=== PATIENT | female | born 1935 | race Caucasian/White ===

== ENCOUNTER 2016-09-09 13:41 | Emergency (ER) | payer MEDICARE, BC ==
[2016-09-09 14:21] LABS: BASOPHILS 0.2 % (0.0-2.0); EOSINOPHILS 3.6 % (0-7); HEMATOCRIT 31.6 % (36.0-48.0); HEMOGLOBIN 10.2 g/dL (12-16); IMMATURE GRANULOCYTES 0.4 % (0-5); LYMPHOCYTES 17.2 % (15-50); MCH 32.2 pg (26.0-34.0); MCHC 32.3 g/dL (31.0-37.0); MCV 99.7 fL (80.0-100.0); MONOCYTES 6.7 % (2-11); NEUTROPHILS 71.9 % (40-80); RBC 3.17 10x6/uL (4.00-5.40); RDW 15.4 % (11.5-14.5); WBC 5.2 10x3/uL (4.8-10.8)
[2016-09-09 14:22] LABS: PLATELET COUNT 211 10x3/uL (130-400)
[2016-09-09 14:42] LABS: ANION GAP 11.3 mmol/L (8-16); CALCIUM 8.2 mg/dL (8.5-10.1); CARBON DIOXIDE 24.2 mmol/L (21.0-32.0); CREATININE - SERUM 0.9 mg/dL (0.6-1.3); POTASSIUM - SERUM 4.5 mmol/L (3.5-5.1)
[2016-09-09 15:12] LABS: APPEARANCE CLEAR (CLEAR); BILIRUBIN NEGATIVE (NEGATIVE); COLOR DK YELLOW (YELLOW); GLUCOSE NEGATIVE (NEGATIVE); KETONE NEGATIVE (NEGATIVE); LEUKOCYTE ESTERASE TRACE (NEGATIVE); NITRITE NEGATIVE (NEGATIVE); PROTEIN TRACE mg/dL (NEGATIVE)
[2016-09-09 15:13] LABS: BACTERIA MODERATE /hpf (NONE SEEN); EPITHELIAL CELLS 0-5 /hpf (0-5); MUCUS <1+ /lpf (NONE SEEN); RED CELLS - URINE 0-5 /hpf (0-5)
[2016-09-16 18:07] LABS: AEROBE ID Final report (())
== END 2016-09-09 16:54 | disposition home or self-care (01) ==
LOC: D.ER 13:41
PROVIDERS: Nurse Practitioner Acute Care
DX: N39.0 Urinary tract infection, site not specified (principal); M06.9 Rheumatoid arthritis, unspecified

== ENCOUNTER 2016-09-15 12:39 | Inpatient (IN) | payer MEDICARE, BC ==
[~2016-09-15] VITALS: Ht 152.4 cm; Wt 75.6 kg
[2016-09-15 13:49] LABS: BASOPHILS 0.3 % (0.0-2.0); EOSINOPHILS 0.5 % (0-7); HEMATOCRIT 35.8 % (36.0-48.0); HEMOGLOBIN 11.5 g/dL (12-16); IMMATURE GRANULOCYTES 3.1 % (0-5); LYMPHOCYTES 20.1 % (15-50); MCH 31.9 pg (26.0-34.0); MCHC 32.1 g/dL (31.0-37.0); MCV 99.4 fL (80.0-100.0); MEAN PLATELET VOLUME 9.4 fL (7.4-10.4); MONOCYTES 18.8 % (2-11); NEUTROPHILS 57.2 % (40-80); PLATELET COUNT 295 10x3/uL (130-400); RDW 17.3 % (11.5-14.5); WBC 5.7 10x3/uL (4.8-10.8)
[2016-09-15 13:57] LABS: APPEARANCE CLOUDY (CLEAR); BACTERIA MANY /hpf (NONE SEEN); BILIRUBIN NEGATIVE (NEGATIVE); COLOR YELLOW (YELLOW); GLUCOSE NEGATIVE (NEGATIVE); KETONE SMALL mg/dL (NEGATIVE); LEUKOCYTE ESTERASE 1+ (NEGATIVE); MUCUS <1+ /lpf (NONE SEEN); NITRITE NEGATIVE (NEGATIVE); PROTEIN NEGATIVE (NEGATIVE); RED CELLS - URINE 0-5 /hpf (0-5); SPECIFIC GRAVITY 1.015 (1.005-1.020); UROBILINOGEN NORMAL (NORMAL); WHITE CELLS - URINE 25-50 /hpf (0-5)
[2016-09-15 14:04] LABS: APTT 26.6 SECONDS (22.8-39.4); INR 1.26 (0.85-1.17); PROTIME 15.7 SECONDS (11.6-15.0)
[2016-09-15 14:18] LABS: ALBUMIN 2.3 g/dL (3.4-5.0); ALKALINE PHOSPHATASE 78 U/L (46-116); ALT (SGPT) 20 U/L (10-68); BILIRUBIN - TOTAL 0.53 mg/dL (0.2-1.3); CALC OSMOLALITY 294 mosm/kg (275-300); CALCIUM 7.9 mg/dL (8.5-10.1); CARBON DIOXIDE 25.2 mmol/L (21.0-32.0); CHLORIDE - SERUM 112 mmol/L (98-107); CREATINE KINASE 43 UL (21-215); CREATININE - SERUM 0.7 mg/dL (0.6-1.3); GLUCOSE 107 mg/dL (74-106); MAGNESIUM - SERUM 1.7 mg/dL (1.8-2.4); PRO BNP 6175 pg/mL (0-450); PROTEIN - SERUM 5.6 g/dL (6.4-8.2); SODIUM 149 mmol/L (136-145); TROPONIN-I 0.043 ng/mL (0.000-0.060); UREA NITROGEN 10 mg/dL (7-18); eGFR NON AFRICAN AMERICAN 85 mL/min (90-120)
[2016-09-15 17:45] VITALS: BP 131/74
[2016-09-15] MEDS ORDERED: DIPHEDRYL25 MG PO (18:11)
[2016-09-15] MEDS ORDERED: CELEXA10 MG PO (18:12)
[2016-09-15] MEDS ORDERED: CARAFATE1 G/10 ML PO (18:12)
[2016-09-15] MEDS ORDERED: XANAX0.25 MG PO (18:12)
[2016-09-15] MEDS ORDERED: LOMOTIL TABLET1 TAB PO (18:13)
[2016-09-15] MEDS ORDERED: VOLTAREN75 MG PO (18:13)
[2016-09-15] MEDS ORDERED: PEPCID20 MG PO (18:14)
[2016-09-15] MEDS ORDERED: DURAGESIC1 PATCH .7 TRANSDERM (18:14)
[2016-09-15] MEDS ORDERED: FLORANEX / LACT1 TAB PO (18:17)
[2016-09-15] MEDS ORDERED: FOLATE0.4 MG PO (18:17)
[2016-09-15] MEDS ORDERED: NORCO 7.5/325 T1 TA1 PO (18:17)
[2016-09-15] MEDS ORDERED: FERROUS SULFAT325 MG PO (18:18)
[2016-09-15] MEDS ORDERED: ZOFRAN4 MG PO (18:18)
[2016-09-15] MEDS ORDERED: METHOTREXATE2.5 MG PO (18:18)
[2016-09-15] MEDS ORDERED: PREDNISONE2.5 MG PO (18:19)
[2016-09-15] MEDS ORDERED: PROTONIX40 MG PO (18:19)
[2016-09-15] MEDS ORDERED: K-TAB10 MEQ PO (18:19)
[2016-09-15] MEDS ORDERED: COLACE100 MG PO (18:20)
[2016-09-15] MEDS ORDERED: CARAFATE1 G PO (18:20)
[2016-09-15] MEDS ORDERED: RESTORIL15 MG PO (18:20)
[2016-09-15] MEDS ORDERED: ZANAFLEX2 M1 PO (18:21)
[2016-09-15] MEDS ORDERED: ACETAMINOPHEN500 M1 PO (18:21)
[2016-09-15] MEDS ORDERED: ZENPEP DR 5,001 EACH PO (18:22)
--- NOTE | 2016-09-15 18:41 | NUR ---
PT SITTING UP IN BED DENIES NEEDS AT THIS TIME.
--- NOTE | 2016-09-15 18:49 | NUR ---
DR HARKINS ORDERED FENTANYL PATCH. NO FENTANYL PATCH IS CURRENTLY ON PT THAT I CAN SEE. PLACED FENTANYL PATCH ON PT R SHOULDER SIGNED AND DATED.
[2016-09-15 20:35] VITALS: BP 128/65
[2016-09-16 00:45] VITALS: BP 127/65
--- NOTE | 2016-09-16 02:05 | NUR ---
PT RESTING WELL WITHOUT C/O OR DISTRESS NOTED. NO NEEDS VOICED. CALL LIGHT WITHIN REACH. WILL CONT TO MONITOR.
[2016-09-16 04:20] VITALS: BP 136/97
[2016-09-16 06:20] LABS: BASOPHILS 0.4 % (0.0-2.0); EOSINOPHILS 3.3 % (0-7); HEMATOCRIT 33.8 % (36.0-48.0); HEMOGLOBIN 10.8 g/dL (12-16); IMMATURE GRANULOCYTES 2.2 % (0-5); LYMPHOCYTES 21.8 % (15-50); MCH 31.9 pg (26.0-34.0); MCV 99.7 fL (80.0-100.0); MEAN PLATELET VOLUME 9.6 fL (7.4-10.4); MONOCYTES 14.6 % (2-11); NEUTROPHILS 57.7 % (40-80); PLATELET COUNT 297 10x3/uL (130-400); RBC 3.39 10x6/uL (4.00-5.40); RDW 17.8 % (11.5-14.5); WBC 6.9 10x3/uL (4.8-10.8)
[2016-09-16 06:39] LABS: CALC OSMOLALITY 289 mosm/kg (275-300); CARBON DIOXIDE 25.5 mmol/L (21.0-32.0); CHLORIDE - SERUM 112 mmol/L (98-107); CREATININE - SERUM 0.6 mg/dL (0.6-1.3); GLUCOSE 91 mg/dL (74-106); MAGNESIUM - SERUM 1.6 mg/dL (1.8-2.4); PHOSPHOROUS 2.3 mg/dL (2.5-4.9); SODIUM 147 mmol/L (136-145); eGFR NON AFRICAN AMERICAN > 90 mL/min (90-120)
[2016-09-16 06:43] LABS: UREA NITROGEN 7 mg/dL (7-18)
--- NOTE | 2016-09-16 07:30 | NUR ---
ASSESSMENT COMPLETED.DENIES ANY NEEDS. SR UP WITH CALL LIGHT IN REACH. TELEMERTY SHOWS ST. IV TO LEFT FA WITH NS AT 75 AND CARDIZEM AT 10. PT IS UP AB ORIN
[2016-09-16 08:40] VITALS: BP 119/77
[2016-09-16 11:39] VITALS: Ht 152.4 cm; Wt 75.6 kg
[2016-09-16 12:03] VITALS: BP 110/59
--- NOTE | 2016-09-16 14:43 | NUR ---
C/O PAIN ALL OVER. HYDROCODONE 7.5MG GIVEN FOR RELIEF. WILL MONITOR
[2016-09-16 14:47] VITALS: BP 101/60
--- NOTE | 2016-09-16 15:01 | NUR ---
PT SITTING UP IN BED DENIES NEEDS WILL CONTINUE TO MONITOR.
--- NOTE | 2016-09-16 15:43 | NUR ---
ON BEDPAN. DENIES ANY NEEDS. CALL LIGHT IN REACH WITH SR UP. WILL MONITOR
--- NOTE | 2016-09-16 18:22 | NUR ---
LYING QUIETLY. NO DISTRESS NOTED. CALL LIGHT IN REACH WITH SR UP. WILL MONITOR
[2016-09-16 20:10] VITALS: BP 111/56
[2016-09-17 00:35] VITALS: BP 103/56
--- NOTE | 2016-09-17 02:00 | NUR ---
PT RESTING WELL WITHOUT C/O OR DISTRESS NOTED. NO NEEDS VOICED. CALL LIGHT WITHIN REACH. WILL CONT TO MONITOR.
[2016-09-17 04:28] VITALS: BP 102/56
[2016-09-17 06:11] LABS: BASOPHILS 0.4 % (0.0-2.0); EOSINOPHILS 3.9 % (0-7); HEMATOCRIT 32.1 % (36.0-48.0); IMMATURE GRANULOCYTES 3.9 % (0-5); LYMPHOCYTES 20.4 % (15-50); MCH 31.5 pg (26.0-34.0); MCHC 31.2 g/dL (31.0-37.0); MCV 101.3 fL (80.0-100.0); MEAN PLATELET VOLUME 9.7 fL (7.4-10.4); MONOCYTES 15.4 % (2-11); PLATELET COUNT 292 10x3/uL (130-400); RBC 3.17 10x6/uL (4.00-5.40); RDW 18.4 % (11.5-14.5); WBC 7.1 10x3/uL (4.8-10.8)
[2016-09-17 06:31] LABS: CALC OSMOLALITY 287 mosm/kg (275-300); CALCIUM 7.3 mg/dL (8.5-10.1); CARBON DIOXIDE 23.9 mmol/L (21.0-32.0); CHLORIDE - SERUM 112 mmol/L (98-107); CREATININE - SERUM 0.7 mg/dL (0.6-1.3); GLUCOSE 85 mg/dL (74-106); SODIUM 146 mmol/L (136-145); UREA NITROGEN 8 mg/dL (7-18); eGFR NON AFRICAN AMERICAN 85 mL/min (90-120)
[2016-09-17 06:33] LABS: POTASSIUM - SERUM 4.1 mmol/L (3.5-5.1)
--- NOTE | 2016-09-17 07:45 | NUR ---
ASSESSMENT COMPLETED. TELEMERTY SHOWS ST WITH PACS. PT HAS A LEFT ARM IV WITH NS AT 75 AND CARDIZEM AT 10. DENIES ANY NEEDS. CALL LIGHT IN REACH WITH SR UP. WILL MONITOR
[2016-09-17 08:07] VITALS: BP 95/70
--- NOTE | 2016-09-17 09:22 | NUR ---
ALEXANDER BURGER. CALL LIGHT IN REACH. NO NEEDS VOICED. WILL MONITOR.
--- NOTE | 2016-09-17 10:45 | NUR ---
LYING QUIETLY WITH EYES CLOSED. NO DISTRESS NOTED. KAN MARK DCD. SR UP TIMES 2 WITH CALL LIGHT IN REACH
[2016-09-17 12:19] VITALS: BP 148/83
--- NOTE | 2016-09-17 12:22 | NUR ---
HOB UP FOR DIET. DENIES ANY NEEDS. CALL LIGHT IN REACH WITH SR UP. TELEMERTY SHOWS SR
--- NOTE | 2016-09-17 13:56 | NUR ---
IV RESTSTARTED TO LEFT FOREARM WITH A 22GAGE CATHERER. IV FLUID RESTARTED. NO NEEDS VOICED
[2016-09-17 16:33] VITALS: BP 112/40
[2016-09-17 20:00] VITALS: BP 108/53
--- NOTE | 2016-09-17 21:59 | NUR ---
INITIAL ROUNDS COMPLETED AT 1910 HRS. PLACED ON BEDPAN. PT MISSED BEDPAN. BED LINENS CHANGED. ASSESSMENT COMPLETED AT 2015 HRS. NORCO PO GIVEN FOR C/O CHRONIC R HIP PAIN. VSS. UCAF PER CM HR 105, IV TO LFA WITH 1/2NS AT 75CC/HR. IV PATENT. BUTTOCKS RED. LUNGS DIMINISHED IN BASES BILAT. BRUISES NOTED TOR KNEE, BILAT ARMS. PM MEDS GIVEN. ASSISTED PT TO BSC AT THAT TIME. VOIDED 150CC OF YELLOW URINE. ASSISTED BACK TO BED. PT CURRENTLY RESTING WITH EYES CLOSED. RESP EVEN AND REGULAR. SR UP X2, CALL LIGHT WITHIN REACH.
--- NOTE | 2016-09-18 00:17 | NUR ---
PT RESTING WITH EYES CLOSED. RESP EVEN AND REGULAR. CAF PER CM HR 99. WILL CONITNUE TO MONITOR. SR UP X2, CALL LIGHT WITHIN REACH.
[2016-09-18 00:33] VITALS: BP 124/63
--- NOTE | 2016-09-18 03:06 | NUR ---
PT RESTING WITH EYES CLOSED. RESP EVEN AND REGULAR. SR UP X2, CALL LIGHT WITHIN REACH.
--- NOTE | 2016-09-18 04:50 | NUR ---
CAF PER CM HR 94. PT RESTING WITH EYES CLOSED. RESP EVEN AND REGULAR. SR UP X2, CALL LIGHT WITHIN REACH.
[2016-09-18 05:19] VITALS: BP 123/57
--- NOTE | 2016-09-18 06:55 | NUR ---
VSS THROUGHOUT NIGHT. CAF PER CM. PT STATED NORCO HELPED CHRONIC PAIN. NEEDS MET; WILL CONTINUE TO MONITOR.
--- NOTE | 2016-09-18 07:30 | NUR ---
ASSESSMENT DONE. DENIES NEEDS.
[2016-09-18] MEDS ORDERED: ROCEPHIN 1 GM/D51 G1 IV (07:45)
[2016-09-18] MEDS ORDERED: CARDIZEM CD240 MG PO (07:49)
--- NOTE | 2016-09-18 09:56 | NUR ---
RESTS IN BED WITH CALL LIGHT IN REACH. IV INFUSING. WILL CONT. PLAN OF CARE.
--- NOTE | 2016-09-18 13:51 | NUR ---
Patient Name: EMMANUEL CARMICHAEL Admission Status: ER Accout number: [id number] Admission Date: 09-16-2016 : 1935 Admission Diagnosis: Attending: MEL Current LOS: 2 Anticipated DC Date: 09-19-2016 Planned Disposition: Snf Facility Primary Insurance: MEDICARE A & B Discharge Planning Comments: * Is the patient Alert and Oriented? Yes 0 * How many steps to enter\exit or inside your home? NONE 0 * PCP DR. HARKINS 0 * Pharmacy [facility] 0 * Preadmission Environment Home Alone 0 * ADLs Independent 0 * Equipment Rolling Walker Shower Chair 0 * Other Equipment [facility] - MEDICAL EQUIPMENT PROVIDER 0 * List name and contact numbers for known caregivers / representatives who currently or will assist patient after discharge: KATHIA SCOTT, DAUGHTER, 0 * Community resources currently utilized None 0 * Please name any agencies selected above. NONE 0 * Additional services required to return to the preadmission environment? Yes * Can the patient safely return to the preadmission environment? No 0 * Has this patient been hospitalized within the prior 30 days at any hospital? No 0 CM MET WITH PT IN ROOM TO DISCUSS DISCHARGE PLANNING AND NEEDS. PT REPORTS LIVING AT HOME INDEPENDENTLY AND ALONE. PT HAS ROLLING WALKER WITH WHEELS AND SEAT WELL SHOWER BENCH. PROVIDER IS [facility]. PT HAS NO OUTSIDE SERVICES ASSISTING IN THE HOME. CM DISCUSSED AVAILABILITY OF HOME HEALTH, REHAB SERVICES AND MEDICAL EQUIPMENT. PT REPORTS NEEDING REHAB AND WANTS TO GO TO [facility] SHE HAS BEEN THERE TWICE BEFORE AND RECEIVED GOOD CARE. PT REPORTS HER DAUGHTER WILL PICK HER UP FOR DISCHARGE HOME. IMPORTANT MESSAGE FROM MEDICARE PROVIDED AND EXPLAINED. CHOICE FOR [facility] SIGNED. CM CALLED [facility], , SPOKE TO ALISSON WHO REPORTS FEMALE REHAB BED AVAILABLE AND WILL SCREEN PT FOR ADMISSION; PT HAS TWO MIDNIGHTS AND NEEDS TONIGHT FOR MEDICARE TO COVER REHAB. CM FAXED REFERRAL TO [facility] AT [phone]. CM WAITING ADMISSION DETERMINATION FROM [facility]. Technical Adjuster: Ben Escobar
--- NOTE | 2016-09-18 17:04 | NUR ---
WITHOUT CHANGES OR DISTRESS NOTED AT THIS TIME. DENIES NEEDS.
[2016-09-18 21:43] VITALS: BP 166/64
[2016-09-19 01:28] VITALS: BP 88/45
[2016-09-19 05:45] VITALS: BP 110/69
[2016-09-19 08:00] VITALS: BP 121/73
--- NOTE | 2016-09-19 08:06 | NUR ---
ASSESSMENT DONE. DENIES NEEDS.
[2016-09-19] MEDS ORDERED: NORCO 7.5/325 T1 TA1 PO (08:11)
[2016-09-19] MEDS ORDERED: DURAGESIC1 PATCH .7 TRANSDERM (08:11)
[2016-09-19] MEDS ORDERED: XANAX0.25 MG PO (08:13)
--- NOTE | 2016-09-19 08:48 | NUR ---
Patient Name: EMMANUEL CARMICHAEL Encounter No: [id number] : 1935 Primary Insurance: MEDICARE A & B Anticipated DC Date: 09-19-2016 Planned Disposition: Long-Term Facility External Planned Provider: [facility]--MEDICARE REHAB BED DCP follow-up note: CM PLACED CALL TO ALISSON AT [facility] TO INQUIRE REGARDING ADMISSION DETERMINATION FOR REHAB SERVICES. ALISSON STATED PT HAS BEEN ACCEPTED TO [facility] AND CAN ADMIT TODAY. SPEEDY INFORMED ALISSON THAT DISCHARGE ORDER HAS BEEN RECEIVED. SPEEDY FAXED DC MED LIST/INFO TO ALISSON AT [facility]. ALISSON STATED SHE WILL CALL CM BACK TO GIVE TIME [facility] VAN CAN TRANSPORT PATIENT. NURSE TO CALL REPORT TO [facility] AT [phone]. [facility] WILL PROVIDE VAN TRANSPORTATION TO REHAB FACILITY. CM WILL FOLLOW AND ASSIST WITH ANY FURTHER DC NEEDS. Elham Lyon RN
--- NOTE | 2016-09-19 09:15 | NUR ---
Patient Name: EMMANUEL CARMICHAEL Encounter No: [id number] : 1935 Primary Insurance: MEDICARE A & B Anticipated DC Date: 09-19-2016 Planned Disposition: [facility]cc Facility External Planned Provider: [facility], MEDICARE REHAB BED DCP follow-up note: CM RECEIVED CALL FROM ALISSON OF [facility], FACILITY VAN TO LOCKER ROOM CLERK PT TODAY BETWEEN 1300 AND 1330 HOURS. PT NOTIFIED WHO IS IN AGREEMENT WITH DISCHARGE TO [facility] FOR REHAB TODAY. NO FURTHER DISCHARGE NEEDS. Ben Escobar, CASE MANAGEMENT
--- NOTE | 2016-09-19 09:42 | NUR ---
UP TO BSC. PLASTICS SHEET FINISHING PRESS OPERATOR AT BS ASSISTING WITH BATH AND LINEN CHANGE. WILL CONT. PLAN OF CARE.
[2016-09-19 12:00] VITALS: BP 114/56
--- NOTE | 2016-09-19 12:45 | NUR ---
REPORT CALLED TO FEROZ
--- NOTE | 2016-09-19 14:07 | NUR ---
DC TO [facility] PER VAN
--- NOTE | 2016-09-25 15:45 | EC ---
PATIENT:EMMANUEL CARMICHAEL I DATE OF SERVICE: 09/16/16 SEX: F MEDICAL RECORD: [id number] DATE OF : [birth year] LOCATION:D.M2 D.212 AGE OF PATIENT: 81 ADMISSION DATE: 09/16/16 REFERRING PHYSICIAN: INTERPRETING PHYSICIAN: RANJAN MORENO M.D. ECHOCARDIOGRAM REPORT ECHO CHARGES 4 ECHO COMPLETE CLINICAL DIAGNOSIS: aortic stenosis ECHOCARDIOGRAPHIC MEASUREMENTS (adult normal given) AC root (d.<3.7cm) 2.9 LV Septum d (<1.2 cm> 1.3 Valve Excursion LV Septum (systole) Left Atria (s.<4.0cm> 3.4 LVPW d(<1.2cm) 1.2 RV (d.<2.3cm) 2.1 LVPW (sytole) LV diastole(<5.6CM) 4.7 MV E-F(>70mm/sec) LV systole 3.0 LVOT Diameter 2.2 MV exc.(>10mm) Est.ejection fraction (50-75%) 55 Pericardial Effusion DOPPLER: LVIT A 145 E 95 LA RVSP LVOT 120 AOP1/2T Asc. Ao 328 RVOT RA PA 222 AV Gradient Peak 43.0 AV Mean 26.2 AV Area 1.4 MV Gradient Peak 8.3 MV Mean 3.5 MV Area 4.1 COMMENTS: Ios Software Engineer: Corrina Benjamin Garden Worker:Nilo Moreno TAPE# DATE OF SERVICE: 09/16/2016 REFERRING PHYSICIAN: Theron Branham MD INDICATION: Atrial fibrillation. DESCRIPTION: Left ventricle appears normal in size and function. No wall motion abnormalities are noted. Estimated ejection fraction is 60%. Mitral valve is structurally normal. There is trivial regurgitation seen. There is no evidence of prolapse. Left atrium is normal in size. The aortic valve leaflets ECHOCARDIOGRAM REPORT [id number] EMMANUEL CARMICHAEL I are thickened. The peak gradient across the valve is 43 mmHg with a mean of 26 mmHg. This corresponds to moderate aortic stenosis. Right ventricle appears normal in size and function. Tricuspid valve is structurally normal. There is trivial regurgitation seen. Right atrium is normal in size. There is no pericardial effusion noted. IMPRESSION: 1. Normal left ventricular size and function, ejection fraction 60%. 2. Moderate aortic aneurysm. TRANSINT:[id number] Voice Confirmation ID: [id number] DOCUMENT ID: [id number] RANJAN MORENO M.D. at 1545 CC: [id number] DICTATION DATE: 09/16/161742 BENCH SHEAR OPERATOR: 09/16/162229 DIS IN 09/19/16 [place] [id number] [place] [id number]
== END 2016-09-19 14:08 | DRG 640 ==
LOC: D.ER 12:39 → OBSVTIME 15:48 → D.M2 15:48 → D.SDCHOLD 09-18 16:07 → D.M2 09-18 16:07
PROVIDERS: Emergency Medicine; ADMIT Family Medicine
DX: E87.6 Hypokalemia (principal); K27.4 Chronic or unspecified peptic ulcer, site unspecified, with hemorrhage; K86.1 Other chronic pancreatitis; N39.0 Urinary tract infection, site not specified; E86.0 Dehydration; K58.9 Irritable bowel syndrome, unspecified; B96.4 Proteus (mirabilis) (morganii) as the cause of diseases classified elsewhere; M06.9 Rheumatoid arthritis, unspecified; I48.91 Unspecified atrial fibrillation; F32.9 Major depressive disorder, single episode, unspecified; Z86.711 Personal history of pulmonary embolism

== ENCOUNTER → 2016-10-06 12:52 | Outpatient (CLI) | payer MEDICARE, BC ==
[~2016-10-06 12:52] MED LIST: ACETAMINOPHEN500 M1 PO; CARAFATE1 G PO; CARAFATE1 G/10 ML PO; CARDIZEM CD240 MG PO; CELEXA10 MG PO; COLACE100 MG PO; DIPHEDRYL25 MG PO; DURAGESIC1 PATCH .7 TRANSDERM; FERROUS SULFAT325 MG PO; FLORANEX / LACT1 TAB PO; FOLATE0.4 MG PO; K-TAB10 MEQ PO; LOMOTIL TABLET1 TAB PO; METHOTREXATE2.5 MG PO; NORCO 7.5/325 T1 TA1 PO; PEPCID20 MG PO; PREDNISONE2.5 MG PO; PROTONIX40 MG PO; RESTORIL15 MG PO; ROCEPHIN 1 GM/D51 G1 IV; VOLTAREN75 MG PO; XANAX0.25 MG PO; ZANAFLEX2 M1 PO; ZENPEP DR 5,001 EACH PO; ZOFRAN4 MG PO
[2016-10-06 13:52] LABS: CALC OSMOLALITY 288 mosm/kg (275-300); CALCIUM 8.3 mg/dL (8.5-10.1); CARBON DIOXIDE 28.9 mmol/L (21.0-32.0); CHLORIDE - SERUM 108 mmol/L (98-107); CREATININE - SERUM 0.6 mg/dL (0.6-1.3); GLUCOSE 83 mg/dL (74-106); POTASSIUM - SERUM 3.8 mmol/L (3.5-5.1); SODIUM 144 mmol/L (136-145); UREA NITROGEN 20 mg/dL (7-18); eGFR NON AFRICAN AMERICAN > 90 mL/min (90-120)
== END | disposition home or self-care (01) ==
LOC: D.LAB 12:52
PROVIDERS: Family Medicine
DX: I48.91 Unspecified atrial fibrillation (principal); R19.7 Diarrhea, unspecified; R60.9 Edema, unspecified

== ENCOUNTER → 2016-10-16 12:45 | Outpatient (CLI) | payer MEDICARE, BC ==
[2016-10-16 13:19] LABS: CALC OSMOLALITY 288 mosm/kg (275-300); CALCIUM 8.1 mg/dL (8.5-10.1); CARBON DIOXIDE 25.7 mmol/L (21.0-32.0); CHLORIDE - SERUM 110 mmol/L (98-107); CREATININE - SERUM 0.6 mg/dL (0.6-1.3); GLUCOSE 97 mg/dL (74-106); POTASSIUM - SERUM 3.3 mmol/L (3.5-5.1); SODIUM 144 mmol/L (136-145); UREA NITROGEN 19 mg/dL (7-18); eGFR NON AFRICAN AMERICAN > 90 mL/min (90-120)
== END | disposition home or self-care (01) ==
LOC: D.LABREF 12:45
PROVIDERS: Family Medicine
DX: K58.9 Irritable bowel syndrome, unspecified (principal)

== ENCOUNTER → 2016-11-13 18:46 | Outpatient (CLI) | payer MEDICARE, BC ==
[2016-11-13 19:24] LABS: CALC OSMOLALITY 285 mosm/kg (275-300); CALCIUM 8.6 mg/dL (8.5-10.1); CARBON DIOXIDE 25.9 mmol/L (21.0-32.0); CHLORIDE - SERUM 107 mmol/L (98-107); CREATININE - SERUM 0.6 mg/dL (0.6-1.3); GLUCOSE 113 mg/dL (74-106); POTASSIUM - SERUM 4.3 mmol/L (3.5-5.1); SODIUM 141 mmol/L (136-145); UREA NITROGEN 25 mg/dL (7-18); eGFR NON AFRICAN AMERICAN > 90 mL/min (90-120)
== END | disposition home or self-care (01) ==
LOC: D.LABREF 18:46
PROVIDERS: Family Medicine
DX: I48.91 Unspecified atrial fibrillation (principal)

== ENCOUNTER → 2016-11-20 14:27 | Outpatient (CLI) | payer MEDICARE, BC ==
[2016-11-20 14:58] LABS: CALC OSMOLALITY 285 mosm/kg (275-300); CALCIUM 8.4 mg/dL (8.5-10.1); CARBON DIOXIDE 25.1 mmol/L (21.0-32.0); CHLORIDE - SERUM 109 mmol/L (98-107); CREATININE - SERUM 0.6 mg/dL (0.6-1.3); GLUCOSE 67 mg/dL (74-106); POTASSIUM - SERUM 3.7 mmol/L (3.5-5.1); SODIUM 143 mmol/L (136-145); UREA NITROGEN 22 mg/dL (7-18); eGFR NON AFRICAN AMERICAN > 90 mL/min (90-120)
== END | disposition home or self-care (01) ==
LOC: D.LABREF 14:27
PROVIDERS: Family Medicine
DX: I48.91 Unspecified atrial fibrillation (principal); K58.0 Irritable bowel syndrome with diarrhea

== ENCOUNTER → 2017-02-22 14:03 | Outpatient (CLI) | payer MEDICARE, BC | END | disposition home or self-care (01) | LOC: D.MRI 14:03 | DX: G31.84 Mild cognitive impairment of uncertain or unknown etiology (principal) ==

== ENCOUNTER → 2018-02-12 13:30 | Outpatient (CLI) | payer MEDICARE, BC | END | disposition home or self-care (01) | LOC: D.MRI 13:30 | DX: M48.48XA Fatigue fracture of vertebra, sacral and sacrococcygeal region, initial encounter for fracture (principal); X58.XXXA Exposure to other specified factors, initial encounter ==

== ENCOUNTER → 2018-05-13 09:57 | Outpatient (CLI) | payer MEDICARE, BC | END | disposition home or self-care (01) | LOC: D.NM 09:57 | DX: Z96.642 Presence of left artificial hip joint (principal); M25.552 Pain in left hip ==

== ENCOUNTER → 2018-06-11 11:19 | Outpatient (CLI) | payer MEDICARE, BC ==
[~2018-06-11 11:19] MED LIST changes: +BUMETANIDE0.5 MG PO; +NAMENDA10 MG PO; +NORCO 10-325 TA1 TAB PO; +OXYBUTYNIN CHLOR5 MG PO; +PEPCID AC20 MG PO; +VOLTAREN100 GM TOPICAL
== END | disposition home or self-care (01) ==
LOC: D.MRI 11:19
DX: M47.896 Other spondylosis, lumbar region (principal)

== ENCOUNTER 2018-06-25 16:56 | Observation (INO) | payer MEDICARE, BC ==
[~2018-06-25] VITALS: Ht 152.4 cm; Wt 84.8 kg
--- NOTE | ~2018-06-25 | EC ---
PATIENT:EMMANUEL CARMICHAEL I DATE OF SERVICE: 06/25/18 SEX: F MEDICAL RECORD: [id number] DATE OF : [birth year] LOCATION:D.M2 D.211 AGE OF PATIENT: 83 ADMISSION DATE: 06/25/18 REFERRING PHYSICIAN: INTERPRETING PHYSICIAN: BERTA MORAN MD ECHOCARDIOGRAM REPORT ECHO CHARGES 4 ECHO COMPLETE Date: 06/26/18 CLINICAL DIAGNOSIS: CP ECHOCARDIOGRAPHIC MEASUREMENTS (adult normal given) AC root (d.<3.7cm) cm LV Septum d (<1.2 cm> 1.0 cm Valve Excursion cm LV Septum (systole) 1.5 cm Left Atria (s.<4.0cm> cm LVPW d(<1.2cm) 1.6 cm RV (d.<2.3cm) 3.8 cm LVPW (sytole) 1.7 cm LV diastole(<5.6CM) 5.7 cm MV E-F(>70mm/sec) cm LV systole 4.7 cm LVOT Diameter 1.6 cm MV exc.(>10mm) cm Est.ejection fraction (50-75%) % DOPPLER: LVIT cm/sec A 84 cm/sec E 73 cm/sec LA cm/sec RVSP 13.9 mmHg LVOT 79 cm/sec AOP1/2T m/s Asc. Ao 247 cm/sec RVOT cm/sec RA cm/sec PA cm/sec AV Gradient Peak 24.4 mmHg AV Mean 18.1 mmHg AV Area 0.6 cm MV Gradient Peak 5.3 mmHg MV Mean 2.5 mmHg MV Area cm COMMENTS: Carpenter Supervisor: Ede ALBERTO Local Sales Manager: 1 Dr. Moran TAPE# PACS Pericardial Effusion N DATE OF SERVICE: 06/26/2018 FINDINGS: 1. Left ventricular chamber size is within normal limits. Left ventricular systolic function is normal. Overall ejection fraction is estimated at 55%. 2. Left atrium, right atrium, and right ventricle chamber sizes are within normal limit. 3. Valvular structures: Aortic valve demonstrates xonw-vs-zlerbvvs calcific aortic stenosis. Valve area calculates to 0.8 cm-squared with gradient of 24 mm across the valve. The remaining valvular structures have normal structure and ECHOCARDIOGRAM REPORT [id number] EMMANUEL CARMICHAEL I motion. 5. Doppler interrogation else pop reveals mild tricuspid regurgitation. No other valvular insufficiency or stenosis. 6. No evidence of pericardial effusion or left ventricular thrombus. TRANSINT:[id number] Voice Confirmation ID: [id number] DOCUMENT ID: [id number] BERTA MORAN MD at 1914 CC: [id number] DICTATION DATE: 06/26/18 1633 SALES REPRESENTATIVE AIRCRAFT: 06/26/18 1811 DIS IN 06/27/18 [place] [id number] [place] [address]
--- NOTE | ~2018-06-25 | MORECARE ---
CASE MANAGEMENT DISCHARGE SUMMARY PATIENT: EMMANUEL CARMICHAEL I UNIT: [id number] ADM DATE: 06/25/18 AGE: 83 : [birth year] SEX: F ROOM/BED: D.0049 AUTHOR: BHUMI CHONG PHYSICIAN: REFERRING PHYSICIAN: WENDI HARKINS MD DATE OF SERVICE: 06/27/18 Discharge Plan Patient Name: EMMANUEL CARMICHAEL [facility] [facility] 1935 Planned Disposition: Home Anticipated Discharge Date: 06/27/18 Discharge Date: 06/27/2018 Expected LOS: 2 Initial Reviewer: [email or web address] Initial Review Date: 06/27/2018 Generated: 06/27/18 4:38 pm Coverage Notice Reviewer: [email or web address] Ebony Mckeon Notice Issued Date-Time: 06/26/2018 14:47 Notice Type: Medicare Outpatient Observation Notice Notice Delivered To: Patient Relationship to Patient: Self Wheelchair Rental Clerk Name: Delivery Method: HAND - Hand Delivered Laverne Days: Prior Verbal Notification: Recipient Understood Notice: Yes Recipient Signature: Yes Med Rec Note Co-signed by Attending: Coverage Notice Comment: Patient Name: EMMANUEL CARMICHAEL Page [phone] at 1538 All edits/amendments must be made on the electronic document DICTATION DATE: 06/27/181536 SENIOR DATA SCIENTIST: DAISY 06/27/181536 RPT#: [id number] DC DATE:06/27/18 STATUS: DIS IN [facility] [address] [place] [address] END OF REPORT
[~2018-06-25 16:56] MED LIST changes: -BUMETANIDE0.5 MG PO; -NAMENDA10 MG PO; -NORCO 10-325 TA1 TAB PO; -OXYBUTYNIN CHLOR5 MG PO; -PEPCID AC20 MG PO; -VOLTAREN100 GM TOPICAL
[2018-06-25] MEDS ORDERED: NAMENDA10 MG PO (17:00)
[2018-06-25] MEDS ORDERED: OXYBUTYNIN CHLOR5 MG PO (17:01)
[2018-06-25] MEDS ORDERED: BUMETANIDE0.5 MG PO (17:02)
[2018-06-25 18:04] LABS: BASOPHILS 0.3 % (0-2); EOSINOPHILS 4.2 % (0-7); HEMATOCRIT 34.5 % (36.0-48.0); HEMOGLOBIN 11.2 g/dL (12-16); LYMPHOCYTES 36.3 % (15-50); MCH 31.4 pg (26.0-34.0); MCHC 32.5 g/dL (31.0-37.0); MCV 96.6 fL (80.0-100.0); MEAN PLATELET VOLUME 11.8 fL (7.4-10.4); MONOCYTES 14.4 % (2-11); NEUTROPHILS 44.8 % (40-80); RBC 3.57 10x6/uL (4.00-5.40); RDW 15.7 % (11.5-14.5); WBC 3.5 10x3/uL (4.8-10.8)
[2018-06-25 18:18] LABS: APTT 24.5 SECONDS (22.8-39.4); INR 1.11 (0.85-1.17); PROTIME 13.9 SECONDS (11.6-15.0)
[2018-06-25 18:27] LABS: PLATELET COUNT 102 10x3/uL (130-400)
[2018-06-25 18:39] LABS: ALBUMIN 2.9 g/dL (3.4-5.0); ALKALINE PHOSPHATASE 121 U/L (46-116); ALT (SGPT) 25 U/L (10-68); BILIRUBIN - TOTAL 0.39 mg/dL (0.2-1.3); CALC OSMOLALITY 288 mosm/kg (275-300); CALCIUM 8.1 mg/dL (8.5-10.1); CARBON DIOXIDE 26.6 mmol/L (21.0-32.0); CHLORIDE - SERUM 108 mmol/L (98-107); CREATININE - SERUM 0.8 mg/dL (0.6-1.3); GLUCOSE 112 mg/dL (74-106); POTASSIUM - SERUM 4.2 mmol/L (3.5-5.1); PROTEIN - SERUM 6.3 g/dL (6.4-8.2); SODIUM 143 mmol/L (136-145); UREA NITROGEN 22 mg/dL (7-18); eGFR NON AFRICAN AMERICAN 73 mL/min (90-120)
[2018-06-25 18:49] LABS: CKMB 1.3 U/L (0.0-3.6); CREATINE KINASE 38 UL (21-215); MAGNESIUM - SERUM 1.7 mg/dL (1.8-2.4)
[2018-06-25 18:50] LABS: TROPONIN-I < 0.017 ng/mL (0.000-0.060)
[2018-06-25] MEDS ORDERED: PEPCID AC20 MG PO (19:46)
[2018-06-25] MEDS ORDERED: CARAFATE1 G PO (19:47)
[2018-06-25] MEDS ORDERED: VOLTAREN100 GM TOPICAL (19:47)
[2018-06-25] MEDS ORDERED: NORCO 10-325 TA1 TAB PO (19:50)
[2018-06-25 23:55] LABS: CREATINE KINASE 35 UL (21-215); TROPONIN-I < 0.017 ng/mL (0.000-0.060)
[2018-06-26] VITALS: BP 124/64
[2018-06-26 04:00] VITALS: BP 137/55
[2018-06-26 07:18] LABS: CKMB 1.1 U/L (0.0-3.6); CREATINE KINASE 27 UL (21-215); TROPONIN-I < 0.017 ng/mL (0.000-0.060)
[2018-06-26 08:14] VITALS: BP 133/55
[2018-06-26 11:49] LABS: CKMB 1.3 U/L (0.0-3.6); CREATINE KINASE 35 UL (21-215); TROPONIN-I < 0.017 ng/mL (0.000-0.060)
[2018-06-26 11:52] VITALS: BP 153/60
[2018-06-26 14:48] VITALS: Ht 152.4 cm; Wt 84.8 kg
[2018-06-26 15:03] VITALS: BP 130/64
[2018-06-26 20:00] VITALS: BP 129/66
[2018-06-27] VITALS: BP 127/74
[2018-06-27 04:00] VITALS: BP 126/68
[2018-06-27 05:42] LABS: BASOPHILS 0.3 % (0-2); EOSINOPHILS 2.7 % (0-7); HEMATOCRIT 36.2 % (36.0-48.0); HEMOGLOBIN 11.6 g/dL (12-16); IMMATURE GRANULOCYTES 0.3 % (0-5); LYMPHOCYTES 28.9 % (15-50); MCH 30.5 pg (26.0-34.0); MCV 95.3 fL (80.0-100.0); MEAN PLATELET VOLUME 10.7 fL (7.4-10.4); MONOCYTES 10.4 % (2-11); NEUTROPHILS 57.4 % (40-80); PLATELET COUNT 90 10x3/uL (130-400); RDW 15.8 % (11.5-14.5); WBC 3.7 10x3/uL (4.8-10.8)
[2018-06-27 05:55] LABS: CALC OSMOLALITY 286 mosm/kg (275-300); CALCIUM 8.3 mg/dL (8.5-10.1); CARBON DIOXIDE 27.4 mmol/L (21.0-32.0); CHLORIDE - SERUM 108 mmol/L (98-107); CREATININE - SERUM 0.7 mg/dL (0.6-1.3); GLUCOSE 98 mg/dL (74-106); POTASSIUM - SERUM 4.1 mmol/L (3.5-5.1); SODIUM 143 mmol/L (136-145); UREA NITROGEN 18 mg/dL (7-18); eGFR NON AFRICAN AMERICAN 85 mL/min (90-120)
[2018-06-27 07:18] LABS: PLATELET ESTIMATE DECREASED
[2018-06-27 07:48] VITALS: BP 126/68
== END 2018-06-27 10:41 | disposition home or self-care (01) ==
LOC: D.ER 16:56 → D.M2 19:30 → OBSVTIME 19:30 → D.M2 19:30
PROVIDERS: Emergency Medicine; Family Medicine
DX: R07.9 Chest pain, unspecified (principal); Z86.718 Personal history of other venous thrombosis and embolism; Z79.01 Long term (current) use of anticoagulants; I48.0 Paroxysmal atrial fibrillation; D64.9 Anemia, unspecified; E86.0 Dehydration; E83.42 Hypomagnesemia; I10 Essential (primary) hypertension; K21.9 Gastro-esophageal reflux disease without esophagitis

== ENCOUNTER 2018-08-29 10:22 | Inpatient (IN) | payer MEDICARE, BC ==
[~2018-08-29] VITALS: Ht 152.4 cm; Wt 82.3 kg
[~2018-08-29 10:22] MED LIST changes: +BUMETANIDE0.5 MG PO; +NAMENDA10 MG PO; +NORCO 10-325 TA1 TAB PO; +OXYBUTYNIN CHLOR5 MG PO; +PEPCID AC20 MG PO; +VOLTAREN100 GM TOPICAL
[2018-08-29 12:00] VITALS: BP 126/76
[2018-08-29 12:59] VITALS: BP 126/76; BMI 35.4
[2018-08-29 13:51] VITALS: Ht 152.4 cm; Wt 82.3 kg
[2018-08-29 15:17] LABS: BASOPHILS 0 % (0-2); EOSINOPHILS 0.5 % (0-7); HEMATOCRIT 37.7 % (36.0-48.0); IMMATURE GRANULOCYTES 0.2 % (0-5); LYMPHOCYTES 48.7 % (15-50); MCH 29.3 pg (26.0-34.0); MCHC 31.8 g/dL (31.0-37.0); MCV 92.2 fL (80.0-100.0); MEAN PLATELET VOLUME 10.1 fL (7.4-10.4); MONOCYTES 7.2 % (2-11); NEUTROPHILS 43.4 % (40-80); RBC 4.09 10x6/uL (4.00-5.40); RDW 16.1 % (11.5-14.5); WBC 5.6 10x3/uL (4.8-10.8)
[2018-08-29 15:20] LABS: PLATELET COUNT 139 10x3/uL (130-400)
[2018-08-29 15:32] LABS: ANION GAP 16.3 mmol/L (8-16); C-REACTIVE PROTEIN 0.7 mg/dL (0.0-0.9); CARBON DIOXIDE 23.6 mmol/L (21.0-32.0); CREATININE - SERUM 0.8 mg/dL (0.6-1.3); POTASSIUM - SERUM 3.9 mmol/L (3.5-5.1)
[2018-08-29 16:00] VITALS: BP 112/41
[2018-08-29 16:25] LABS: ERYTHROCYTE SEDIMENTATION RATE 26 mm/hr (0-30)
[2018-08-29 20:00] VITALS: BP 108/60
[2018-08-30 04:00] VITALS: BP 109/59
[2018-08-30 05:04] LABS: BASOPHILS 0.2 % (0-2); EOSINOPHILS 3.2 % (0-7); HEMATOCRIT 34.6 % (36.0-48.0); HEMOGLOBIN 10.9 g/dL (12-16); LYMPHOCYTES 30.6 % (15-50); MCH 29.2 pg (26.0-34.0); MCHC 31.5 g/dL (31.0-37.0); MCV 92.8 fL (80.0-100.0); MEAN PLATELET VOLUME 10.3 fL (7.4-10.4); MONOCYTES 11.2 % (2-11); NEUTROPHILS 54.8 % (40-80); PLATELET COUNT 117 10x3/uL (130-400); RBC 3.73 10x6/uL (4.00-5.40); WBC 4.7 10x3/uL (4.8-10.8)
[2018-08-30 05:12] LABS: CALC OSMOLALITY 284 mosm/kg (275-300); CALCIUM 7.8 mg/dL (8.5-10.1); CARBON DIOXIDE 23.4 mmol/L (21.0-32.0); CHLORIDE - SERUM 109 mmol/L (98-107); CREATININE - SERUM 0.6 mg/dL (0.6-1.3); GLUCOSE 91 mg/dL (74-106); SODIUM 141 mmol/L (136-145); eGFR NON AFRICAN AMERICAN > 90 mL/min (90-120)
[2018-08-30 05:17] LABS: UREA NITROGEN 23 mg/dL (7-18)
[2018-08-30 08:51] VITALS: BP 106/52
[2018-08-30 15:27] VITALS: BP 100/61
[2018-08-30 20:28] VITALS: BP 118/49
[2018-08-30 23:54] VITALS: BP 118/79
[2018-08-31 04:32] VITALS: BP 100/60
[2018-08-31 05:56] LABS: BASOPHILS 0.2 % (0-2); EOSINOPHILS 4.4 % (0-7); HEMATOCRIT 35.4 % (36.0-48.0); HEMOGLOBIN 11.1 g/dL (12-16); IMMATURE GRANULOCYTES 0.2 % (0-5); LYMPHOCYTES 29.5 % (15-50); MCH 29.4 pg (26.0-34.0); MCHC 31.4 g/dL (31.0-37.0); MCV 93.7 fL (80.0-100.0); MEAN PLATELET VOLUME 10.4 fL (7.4-10.4); MONOCYTES 8.8 % (2-11); NEUTROPHILS 56.9 % (40-80); PLATELET COUNT 113 10x3/uL (130-400); RBC 3.78 10x6/uL (4.00-5.40); RDW 16.1 % (11.5-14.5); WBC 4.6 10x3/uL (4.8-10.8)
[2018-08-31 06:14] LABS: CALC OSMOLALITY 281 mosm/kg (275-300); CHLORIDE - SERUM 107 mmol/L (98-107); CREATININE - SERUM 0.7 mg/dL (0.6-1.3); GLUCOSE 91 mg/dL (74-106); SODIUM 139 mmol/L (136-145); UREA NITROGEN 23 mg/dL (7-18); eGFR NON AFRICAN AMERICAN 85 mL/min (90-120)
[2018-08-31 09:00] VITALS: BP 158/77
[2018-08-31] MEDS ORDERED: DOXYCYCLINE HY100 M2 PO (09:12)
[2018-08-31 12:30] VITALS: BP 123/53
== END 2018-08-31 13:33 | disposition home health service (06) | DRG 603 ==
LOC: D.MS 10:22
PROVIDERS: Family Medicine
DX: L03.115 Cellulitis of right lower limb (principal); D68.59 Other primary thrombophilia; K86.1 Other chronic pancreatitis; L97.511 Non-pressure chronic ulcer of other part of right foot limited to breakdown of skin; I48.91 Unspecified atrial fibrillation; M06.9 Rheumatoid arthritis, unspecified

== ENCOUNTER → 2018-10-15 12:57 | Outpatient (CLI) | payer MEDICARE, BC ==
[2018-08-29 13:51] VITALS: BMI 35.4
[~2018-10-15 12:57] MED LIST changes: +DOXYCYCLINE HY100 M2 PO
== END | disposition home or self-care (01) ==
LOC: D.US 12:57
DX: M79.661 Pain in right lower leg (principal)

== ENCOUNTER → 2018-11-05 09:48 | Outpatient (CLI) | payer MEDICARE, BC, MEDICAID ==
[2018-08-29 13:51] VITALS: BMI 35.4
== END | disposition home or self-care (01) ==
LOC: D.MRI 09:48
PROVIDERS: ATTEND Clinical Nurse Specialist Family Health
DX: L97.909 Non-pressure chronic ulcer of unspecified part of unspecified lower leg with unspecified severity (principal)

== ENCOUNTER → 2018-11-13 10:04 | Day surgery (SDC) | payer MEDICARE, BC, MEDICAID ==
[2018-08-29 13:51] VITALS: BMI 35.4
[2018-11-13 10:31] LABS: BASOPHILS 0.3 % (0-2); HEMATOCRIT 39.8 % (36.0-48.0); HEMOGLOBIN 12.8 g/dL (12-16); IMMATURE GRANULOCYTES 0.2 % (0-5); LYMPHOCYTES 27.4 % (15-50); MCH 30.8 pg (26.0-34.0); MCHC 32.2 g/dL (31.0-37.0); MCV 95.7 fL (80.0-100.0); MEAN PLATELET VOLUME 10.4 fL (7.4-10.4); MONOCYTES 11.5 % (2-11); NEUTROPHILS 57.6 % (40-80); PLATELET COUNT 116 10x3/uL (130-400); RBC 4.16 10x6/uL (4.00-5.40); RDW 16.9 % (11.5-14.5); WBC 5.7 10x3/uL (4.8-10.8)
[2018-11-13 12:03] LABS: ERYTHROCYTE SEDIMENTATION RATE 6 mm/hr (0-30)
== END | disposition home or self-care (01) ==
LOC: D.LAB 10:04
PROVIDERS: ATTEND Orthopaedic Surgery
DX: M79.671 Pain in right foot (principal)

== ENCOUNTER 2018-12-10 14:02 | Emergency (ER) | payer MEDICARE, BC, MEDICAID ==
[~2018-12-10] VITALS: Ht 152.4 cm; Wt 81.8 kg
[2018-12-10 14:05] VITALS: Ht 152.4 cm; Wt 81.8 kg
[2018-12-10] MEDS ORDERED: BUSPAR5 MG PO (14:07)
[2018-12-10] MEDS ORDERED: PEPCID AC20 MG PO (14:08)
[2018-12-10] MEDS ORDERED: IMODIUM2 MG PO (14:10)
[2018-12-10] MEDS ORDERED: NAMENDA10 MG PO (14:11)
[2018-12-10] MEDS ORDERED: REGLAN10 MG PO (14:12)
[2018-12-10] MEDS ORDERED: PROTONIX40 MG PO (14:13)
[2018-12-10 15:21] LABS: BASOPHILS 0.2 % (0-2); HEMATOCRIT 38.5 % (36.0-48.0); HEMOGLOBIN 12.5 g/dL (12-16); IMMATURE GRANULOCYTES 0.2 % (0-5); LYMPHOCYTES 6.5 % (15-50); MCH 31.3 pg (26.0-34.0); MCHC 32.5 g/dL (31.0-37.0); MCV 96.3 fL (80.0-100.0); MONOCYTES 4.6 % (2-11); NEUTROPHILS 87.5 % (40-80); RDW 15.3 % (11.5-14.5); WBC 5.2 10x3/uL (4.8-10.8)
[2018-12-10 15:22] LABS: PLATELET COUNT 86 10x3/uL (130-400)
[2018-12-10 15:36] LABS: ALBUMIN 2.9 g/dL (3.4-5.0); ALKALINE PHOSPHATASE 104 U/L (46-116); ALT (SGPT) 111 U/L (10-68); BILIRUBIN - TOTAL 1.43 mg/dL (0.2-1.3); CALC OSMOLALITY 277 mosm/kg (275-300); CARBON DIOXIDE 26.9 mmol/L (21.0-32.0); CHLORIDE - SERUM 106 mmol/L (98-107); CREATININE - SERUM 0.6 mg/dL (0.6-1.3); GLUCOSE 95 mg/dL (74-106); POTASSIUM - SERUM 4.1 mmol/L (3.5-5.1); PROTEIN - SERUM 6.5 g/dL (6.4-8.2); SODIUM 138 mmol/L (136-145); UREA NITROGEN 19 mg/dL (7-18); eGFR NON AFRICAN AMERICAN > 90 mL/min (90-120)
[2018-12-10 15:40] LABS: AMYLASE - SERUM 20 U/L (25-115); LIPASE 53 U/L (73-393); TROPONIN-I < 0.017 ng/mL (0.000-0.060)
[2018-12-10 15:56] LABS: APPEARANCE CLEAR (CLEAR); BILIRUBIN NEGATIVE (NEGATIVE); COLOR YELLOW (YELLOW); GLUCOSE NEGATIVE (NEGATIVE); KETONE NEGATIVE (NEGATIVE); NITRITE POSITIVE (NEGATIVE); PROTEIN NEGATIVE (NEGATIVE); SPECIFIC GRAVITY 1.015 (1.005-1.020); UROBILINOGEN NORMAL (NORMAL)
[2018-12-10 15:57] LABS: BACTERIA MANY /hpf (NONE SEEN); RED CELLS - URINE OCC /hpf (0-5); WHITE CELLS - URINE 0-5 /hpf (0-5)
[2018-12-10 16:20] LABS: PLATELET ESTIMATE DECREASED
[2018-12-10] MEDS ORDERED: ZOFRAN8 MG PO (17:15)
[2018-12-10] MEDS ORDERED: MACROBID100 MG PO (17:15)
[2018-12-10 19:14] VITALS: BP 106/39
== END 2018-12-10 19:25 | disposition home or self-care (01) ==
LOC: D.ER 14:02
PROVIDERS: Family Medicine
DX: K52.9 Noninfective gastroenteritis and colitis, unspecified (principal); N39.0 Urinary tract infection, site not specified

== ENCOUNTER 2019-09-09 10:44 | Inpatient (IN) | payer MEDICARE, BC, MEDICAID ==
[~2019-09-09] VITALS: Ht 152.4 cm; Wt 88.9 kg
[~2019-09-09 10:44] MED LIST changes: +BUSPAR5 MG PO; +IMODIUM2 MG PO; +MACROBID100 MG PO; +REGLAN10 MG PO; +ZOFRAN8 MG PO
--- NOTE | 2019-09-09 11:08 | NUR ---
RECEIVED PT TO ROOM 2108 VIA WHEELCHAIR. PT A/O X4, ORIENTED PT TO ROOM AND CALL LIGHT. WILL ASSESS PT, START IV AND START PLAN OF CARE.
[2019-09-09 11:42] VITALS: BP 131/54
--- NOTE | 2019-09-09 15:14 | NUR ---
CALLED [facility] AND ASKED THEM IF THEY COULD FAX A MED LIST.
[2019-09-09] MEDS ORDERED: LASIX20 MG PO (15:29)
--- NOTE | 2019-09-09 15:30 | NUR ---
HELPED PT TO BEDSIDE COMMODE AND BACK TO BED. PT DENIES ANY OTHER NEEDS AT THIS TIME. CALL LIGHT IN REACH, NAD NOTED, WILL CONTINUE TO MONITOR.
[2019-09-09 16:41] VITALS: BP 103/53
[2019-09-09 20:31] VITALS: BP 114/47
--- NOTE | 2019-09-09 21:49 | NUR ---
EVENING ROUNDS COMPLETED. AAOX3, WITH MILD CONFUSION, VSS, ALTHOUGH O2SAT 89. PT PLACED ON 2L NC. PT REFUSED SCD'S AT THIS TIME. PT ASSISTED TO BEDSIDE COMODE. AND BACK TO BED. PT C/O GENERALIZED PAIN. EDUCATE PT THAT SHE HAS DURAGESIC PATCH AT THIS TIME. PT DENIES ANY FURTHER NEEDS AT THIS TIME. WILL CPOC. CL WITHIN REACH, BED IN LOW, SR UP X2.
--- NOTE | 2019-09-09 22:00 | NUR ---
PT IS AWAKE AT THIS TIME. SHE WAS PLACED ON THE BSC AND HAD A MEDIUM BROWN STOOL. IT TAKES ONE PERSON TO GET HER UP BUT AT LEAST TWO TO GET HER BACK IN BED. NO OTHER C/O AT THIS TIME.
--- NOTE | 2019-09-10 00:16 | NUR ---
PT IS UP AGAIN TO THE BSC HAVING A BM. SHE ASK TO STAY UP ON THE BSC UNTIL SHE CALLS FOR HELP TO GET BACK INTO BED.
[2019-09-10 00:20] VITALS: BP 105/52
--- NOTE | 2019-09-10 00:54 | NUR ---
PT CALLED TO BE PUT ON THE BSC. SHE VOIDED AND SHE WAS PUT BACK TO BED.
--- NOTE | 2019-09-10 01:10 | NUR ---
PT UP AGAIN TO BSC. SHE VOIDED AND IT HAD LOOSE STOOL MIXED IN. SHE STATES SHE IS TRYING TO SLEEP NOW.
[2019-09-10 04:10] VITALS: BP 119/39
--- NOTE | 2019-09-10 06:20 | NUR ---
PT HAVE HAD A 8-9 BM DURING THIS SHIFT. BM STARTED A WELL FORMED STOOL TO DIARRHEA. PT ALSO HAS BEEN INCREASINGLY CONFUSED. STATING SHE WANTS TO GET OUT OF BED AND GO HOME. PT IS NOT ALERT TO PLACE OR TIME AT THE MOMENT. BED ALARM TURNED ON. WILL CTM.
[2019-09-10 08:20] LABS: ALBUMIN 2.9 g/dL (3.4-5.0); ALKALINE PHOSPHATASE 92 U/L (46-116); ALT (SGPT) 22 U/L (10-68); BILIRUBIN - TOTAL 1.18 mg/dL (0.2-1.3); CALC OSMOLALITY 282 mosm/kg (275-300); CALCIUM 8.1 mg/dL (8.5-10.1); CARBON DIOXIDE 24.1 mmol/L (21.0-32.0); CHLORIDE - SERUM 106 mmol/L (98-107); CREATININE - SERUM 0.7 mg/dL (0.6-1.3); GLUCOSE 94 mg/dL (74-106); POTASSIUM - SERUM 3.4 mmol/L (3.5-5.1); PRO BNP 840 pg/mL (0-450); PROTEIN - SERUM 6.8 g/dL (6.4-8.2); SODIUM 142 mmol/L (136-145); UREA NITROGEN 13 mg/dL (7-18); eGFR NON AFRICAN AMERICAN 85 mL/min (90-120)
[2019-09-10 08:30] VITALS: BP 121/38
[2019-09-10 09:09] LABS: BASOPHILS 0.4 % (0-2); EOSINOPHILS 1.3 % (0-7); HEMATOCRIT 31.5 % (36.0-48.0); HEMOGLOBIN 9.7 g/dL (12-16); IMMATURE GRANULOCYTES 0.2 % (0-5); LYMPHOCYTES 21.5 % (15-50); MCH 25.9 pg (26.0-34.0); MCHC 30.8 g/dL (31.0-37.0); MCV 84.2 fL (80.0-100.0); MEAN PLATELET VOLUME 9.8 fL (7.4-10.4); MONOCYTES 10.3 % (2-11); NEUTROPHILS 66.3 % (40-80); PLATELET COUNT 96 10x3/uL (130-400); RBC 3.74 10x6/uL (4.00-5.40); RDW 19.1 % (11.5-14.5); WBC 4.7 10x3/uL (4.8-10.8)
--- NOTE | 2019-09-10 09:20 | NUR ---
PT CONFUSED AND ASKING WHY SHE IS HERE. PT ALSO C/O NAUSEA. PRN ZOFRAN GIVEN AND PT REORIENTED TO SITUATION. WCTM.
[2019-09-10 11:17] VITALS: Ht 152.4 cm; Wt 88.9 kg
--- NOTE | 2019-09-10 19:41 | NUR ---
PATIENT ATTEMPTING TO CLIMB OOB. ASSISTED PATIENT TO BSC. PATIENT HAD BM. CHANGED PATIENT'S LINENS AND GAVE HER A BATH.
[2019-09-10 19:54] VITALS: BP 137/50
[2019-09-11 01:39] VITALS: BP 124/60
[2019-09-11 05:30] VITALS: BP 125/58
[2019-09-11 06:55] LABS: BASOPHILS 0.4 % (0-2); EOSINOPHILS 1.6 % (0-7); HEMATOCRIT 32.5 % (36.0-48.0); HEMOGLOBIN 9.9 g/dL (12-16); IMMATURE GRANULOCYTES 0.4 % (0-5); MCH 25.6 pg (26.0-34.0); MCHC 30.5 g/dL (31.0-37.0); MEAN PLATELET VOLUME 10.6 fL (7.4-10.4); MONOCYTES 10.7 % (2-11); NEUTROPHILS 63.9 % (40-80); PLATELET COUNT 104 10x3/uL (130-400); RBC 3.87 10x6/uL (4.00-5.40); RDW 19.2 % (11.5-14.5)
--- NOTE | 2019-09-11 07:01 | NUR ---
IV SITED TO THE PATIENT'S LEFT FA WITH A 22G ON THE 3RD ATTEMPT
[2019-09-11 07:08] LABS: CALC OSMOLALITY 283 mosm/kg (275-300); CALCIUM 7.8 mg/dL (8.5-10.1); CARBON DIOXIDE 27.3 mmol/L (21.0-32.0); CHLORIDE - SERUM 105 mmol/L (98-107); CREATININE - SERUM 0.7 mg/dL (0.6-1.3); GLUCOSE 96 mg/dL (74-106); PRO BNP 1104 pg/mL (0-450); SODIUM 142 mmol/L (136-145); UREA NITROGEN 16 mg/dL (7-18); eGFR NON AFRICAN AMERICAN 85 mL/min (90-120)
[2019-09-11 07:13] LABS: POTASSIUM - SERUM 2.9 mmol/L (3.5-5.1)
--- NOTE | 2019-09-11 07:24 | NUR ---
REPORT RECEIVED. WILL CONTINUE WITH POC. PT CURRENTLY LYING SEMI FOWLERS. CALL LIGHT W/I REACH. PT IS AAO AND UP WITH ASSIST. PT ASSISTED TO AND FROM BEDSIDE TOILET. RR EVEN AND UNLABORED ON 2.5L 02. L.WRIST PIV IS SALINE LOCKED. BERENICE ALARM IN PLACE. NO S/S OF DISTRESS NOTED. WILL CTM.
[2019-09-11 08:00] VITALS: BP 121/48
--- NOTE | 2019-09-11 10:52 | NUR ---
STARTED NEW PIV TO THE LEFT FOREARM 22GA X1 ATTEMPT. PT TOLERATED WELL. PREVIOUS PIV INFILTRATED, REMOVED WITH CATHETER TIP FULLY INTACT. FLUSHED WITH 10ML NS TO CONFIRM PATENCY. WILL CTM.
[2019-09-11 12:03] VITALS: BP 105/57
--- NOTE | 2019-09-11 12:06 | EC ---
PATIENT:EMMANUEL CARMICHAEL I DATE OF SERVICE: 09/09/19 SEX: F MEDICAL RECORD: [id number] DATE OF : [birth year] LOCATION:D.M3 D.120 AGE OF PATIENT: 84 ADMISSION DATE: 09/09/19 REFERRING PHYSICIAN: INTERPRETING PHYSICIAN: CAREN OSCAR MD ECHOCARDIOGRAM REPORT ECHO CHARGES 5 ECHO LIMITED Date: 09/10/19 CLINICAL DIAGNOSIS: FLUID OVERLOAD/CHF/ ASSESS EF ECHOCARDIOGRAPHIC MEASUREMENTS (adult normal given) AC root (d.<3.7cm) cm LV Septum d (<1.2 cm> cm Valve Excursion cm LV Septum (systole) cm Left Atria (s.<4.0cm> 4.9 cm LVPW d(<1.2cm) cm RV (d.<2.3cm) cm LVPW (sytole) cm LV diastole(<5.6CM) 4.5 cm MV E-F(>70mm/sec) cm LV systole 3.0 cm LVOT Diameter cm MV exc.(>10mm) cm Est.ejection fraction (50-75%) % DOPPLER: LVIT cm/sec A cm/sec E cm/sec LA cm/sec RVSP mmHg LVOT cm/sec AOP1/2T m/s Asc. Ao cm/sec RVOT cm/sec RA cm/sec PA cm/sec AV Gradient Peak mmHg AV Mean mmHg AV Area cm MV Gradient Peak mmHg MV Mean mmHg MV Area cm COMMENTS: Pneumatic Riveter: 2 MOHIT JARAMILLO Retention Manager: 3 Dr. Bloom TAPE# PACS Pericardial Effusion N DATE OF SERVICE: Adequate 2D, Color Flow, Spectral Doppler, and M-Mode Somewhat technically limited study includes 2D, color flow. Grossly LVH appears present. LV internal dimensions are normal. Wall motion is normal, EF is greater than or equal to 55%. The aortic valve appears to be sclerotic with good valve excursion. Left atrium dilated at 4.9 cm. Mitral valve thickened. Mitral annular calcification, no more than mild MR. ECHOCARDIOGRAM REPORT [id number] EMMANUEL CARMICHAEL I Right-sided chambers are grossly normal. Mild TR. TRANSINT:[id number] Voice Confirmation ID: [id number] DOCUMENT ID: [id number] CAREN OSCAR MD at 5948 CC: [id number] DICTATION DATE: 09/10/19 1404 BUTCHER OR SMALLGOODS MAKER: 09/10/[address] [facility] [address] [place] [address]
--- NOTE | 2019-09-11 13:49 | MORECARE ---
CASE MANAGEMENT DISCHARGE SUMMARY PATIENT: EMMANUEL CARMICHAEL I UNIT: [id number] ADM DATE: 09/09/19 AGE: 84 : 37 SEX: F ROOM/BED: D.1208 AUTHOR: BHUMI CHONG PHYSICIAN: REFERRING PHYSICIAN: WENDI HARKINS MD DATE OF SERVICE: 09/11/19 Discharge Plan Patient Name: EMMANUEL CARMICHAEL [facility] [facility] 1935 Planned Disposition: Assisted Living Anticipated Discharge Date: 09/13/19 Discharge Date: Expected LOS: 4 Initial Reviewer: [email or web address] Initial Review Date: 09/09/2019 Generated: 09/11/19 2:48 pm Coverage Notice Reviewer: [email or web address] - Karin Kern Notice Issued Date-Time: 09/11/2019 10:55 Notice Type: IM Discharge Notice Notice Delivered To: Patient Relationship to Patient: Surg Rn Name: Delivery Method: HAND - Hand Delivered Laverne Days: Prior Verbal Notification: Recipient Understood Notice: Yes Recipient Signature: Yes Med Rec Note Co-signed by Attending: Coverage Notice Comment: DC IMM delivered, explained, signed by the patient, and placed in his chart. Signed form also left with patient. Karin Kern RN , CCM Patient Name: EMMANUEL CARMICHAEL Page [phone] at 1349 All edits/amendments must be made on the electronic document DICTATION DATE: 09/11/19 1348 DIRECTOR OPERATING: DAISY 09/11/19 1348 RPT#: [id number] DC DATE: STATUS: ADM IN [facility] [address] [place] [address] END OF REPORT
--- NOTE | 2019-09-11 13:57 | MORECARE ---
CASE MANAGEMENT DISCHARGE SUMMARY PATIENT: EMMANEUL CARMICHAEL I UNIT: [id number] ADM DATE: 09/09/19 AGE: 84 : 37 SEX: F ROOM/BED: D.1208 AUTHOR: CASTILLO,DOC PHYSICIAN: REFERRING PHYSICIAN: WENDI HARKINS MD DATE OF SERVICE: 09/11/19 Discharge Plan Patient Name: EMMANUEL CARMICHAEL Facility: [facility]:[place] : 1935 Planned Disposition: Assisted Living Anticipated Discharge Date: 09/13/19 Discharge Date: Expected LOS: 4 Initial Reviewer: [email or web address] Initial Review Date: 09/09/2019 Generated: 09/11/19 2:57 pm Comments DCP- Discharge Planning Updated by [email or web address]: Karin Kern on 09/11/19 12:[address] DC PLAN: Return to [facility]. ANTICIPATED DC NEEDS: denied known dc needs at time of assessment, CM met with patient to complete initial dc planning assessment. CM educated patient on the CM role and verbal consent given by patient to complete assessment. CM verified patient's address, phone number, and emergency contact phone numbers. Patient lives at [facility]. At discharge patient plans to return to [facility] and feels this is a safe discharge. CM discussed availability of home health, rehab services, and medical equipment. Patient denied known discharge needs at this time. Transportation provider at discharge will be [facility]. CM will continue to follow and will assist as needed with dc plans/needs. Karin Kern RN, [facility] DCPIA - Discharge Planning Initial Assessment Updated by [email or web address]: Karin Kern on 09/11/19 1:49 pm * Is the patient Alert and Oriented? Yes * How many steps to enter\exit or inside your home? none * PCP Dr. Harkins * Pharmacy [facility] * Preadmission Environment Assisted Living * Facility Name [facility] * ADLs Partial Dependent * Partial ADLs (Assistance needed) Bathing Medication Management * Equipment Rolling Walker Wheelchair * List name and contact numbers for known caregivers / representatives who currently or will assist patient after discharge: [facility] - [phone] * Verbal permission to speak to the caregivers and representatives has been obtained from the patient. Yes * Community resources currently utilized None * Additional services required to return to the preadmission environment? No * Can the patient safely return to the preadmission environment? Yes * Has this patient been hospitalized within the prior 30 days at any hospital? No Coverage Notice Reviewer: [email or web address] Ebony Kern Notice Issued Date-Time: 09/11/2019 10:55 Notice Type: IM Discharge Notice Notice Delivered To: Patient Relationship to Patient: Coffee Urn Attendant Name: Delivery Method: HAND - Hand Delivered Laverne Days: Prior Verbal Notification: Recipient Understood Notice: Yes Recipient Signature: Yes Med Rec Note Co-signed by Attending: Coverage Notice Comment: DC IMM delivered, explained, signed by the patient, and placed in his chart. Signed form also left with patient. Karin Kern RN , [facility] Last DP export: 09/11/19 12:48 pm Patient Name: EMMANUEL CARMICHAEL Page [phone] at 1357 All edits/amendments must be made on the electronic document DICTATION DATE: 09/11/19 1357 ASSESSMENT SERVICES MANAGER: DAISY 09/11/19 1357 RPT#: [id number] DC DATE: STATUS: ADM IN [facility] [address] [place] [address] END OF REPORT
[2019-09-11 15:15] LABS: ANION GAP 12.8 mmol/L (8-16); CALCIUM 7.3 mg/dL (8.5-10.1); CARBON DIOXIDE 28.7 mmol/L (21.0-32.0); CREATININE - SERUM 0.8 mg/dL (0.6-1.3)
[2019-09-11 15:17] LABS: POTASSIUM - SERUM 2.5 mmol/L (3.5-5.1)
[2019-09-11 16:17] VITALS: BP 111/57
[2019-09-11 20:02] VITALS: BP 99/55
--- NOTE | 2019-09-11 21:15 | NUR ---
EVENING ROUNDS COMPLETED. VSS WITH BP 99/55, WILL CTM. PT LAYING IN BED. ZOFRAN GIVEN FOR NAUSEA. POTASIUM 2.9. EVENING K-DUR GIVEN ALONGSIDE PRN 20MEQ POTASSIUM. WILL ADMINISTER Q2HRS UNTIL DOSE IS COMPLETED. PT DENIES ANY FURTHER NEEDS AT THIS TIME. WILL CPOC. CL WITHIN REACH, BED IN LOW, SR UP X2.
[2019-09-12 01:08] VITALS: BP 97/60
--- NOTE | 2019-09-12 01:18 | NUR ---
PT UP USING THE BEDSIDE COMMODE. MINIMAL TO MODERATE AMOUNT OF FRESH BLOOD AROUND PT'S PERINEAL AREA. CALLED AND NOTIFIED DR. CHANG. HE STATED HE WILL COME SEE THE PT IN THE AM. HE STATED TO [facility] PT.
[2019-09-12 06:05] VITALS: BP 111/58
[2019-09-12 07:07] LABS: BASOPHILS 0.2 % (0-2); EOSINOPHILS 1.3 % (0-7); HEMATOCRIT 34.2 % (36.0-48.0); HEMOGLOBIN 10.3 g/dL (12-16); IMMATURE GRANULOCYTES 0.2 % (0-5); LYMPHOCYTES 19.3 % (15-50); MCH 25.5 pg (26.0-34.0); MCHC 30.1 g/dL (31.0-37.0); MCV 84.7 fL (80.0-100.0); MEAN PLATELET VOLUME 10.2 fL (7.4-10.4); MONOCYTES 16.9 % (2-11); NEUTROPHILS 62.1 % (40-80); PLATELET COUNT 104 10x3/uL (130-400); RBC 4.04 10x6/uL (4.00-5.40); RDW 19.3 % (11.5-14.5); WBC 5.3 10x3/uL (4.8-10.8)
[2019-09-12 07:30] LABS: ANION GAP 13.4 mmol/L (8-16); BILIRUBIN - TOTAL 1.12 mg/dL (0.2-1.3); CALCIUM 7.5 mg/dL (8.5-10.1); CARBON DIOXIDE 28.3 mmol/L (21.0-32.0); CREATININE - SERUM 0.8 mg/dL (0.6-1.3); PROTEIN - SERUM 6.8 g/dL (6.4-8.2)
[2019-09-12 07:35] LABS: POTASSIUM - SERUM 3.7 mmol/L (3.5-5.1)
--- NOTE | 2019-09-12 11:03 | NUR ---
NUTRITION FOLLOW UP: INTERVIEW: Met with patient this AM, pt was asleep. Pt seen by Speech Therapy on 09/11. Speech stated that pt does not have any sign/symptoms of aspiration at this time. DIET: AHA PO INTAKE: 22.5% x 6 meals WT: 195 lbs BM: Diarrhea x 2 on 09/11 SIG MEDS: Immodium, KCl, Folic acid, Colace, Zofran, Pepcid SIG LABS: Calcium- 7.5, Phos-2.3, Mag-1.7 WILL CONTINUE TO FOLLOW PT [facility] CLINICAL DIETITIAN FOLLOWING
[2019-09-12 12:20] VITALS: BP 105/99
[2019-09-12 16:00] VITALS: BP 114/62
--- NOTE | 2019-09-12 16:06 | NUR ---
I have reviewed this patient and I concur with the Shift Assessment completed by the Licensed Practical Nurse today this shift.
--- NOTE | 2019-09-12 18:16 | NUR ---
PT RESTING IN BED WITH EYES OPEN CALL LIGHT IN REACH WILL MONITER
[2019-09-12 20:00] VITALS: BP 108/44
[2019-09-13] VITALS (7 sets, daily range): BP systolic 99–148; BP diastolic 52–65
--- NOTE | 2019-09-13 07:41 | NUR ---
ALERT AND ORIENTED TO SELF ONLY. IV TO RT. HAND SALINE LOCKED WITH NO S/S OF INFECTION/INFILTRATION. AMBULATES WITH SBA BUT REFUSES TO USE CALL LIGHT . BED ALARM IN PLACE ALONG WITH OTHER FALL PRECAUTIONS. ENCOURAGEWD TO USE CALL LIGHT FOR ASSIT.LUNGS CTA W/O COUGH AT THIS TIME.
[2019-09-13 13:04] LABS: ANION GAP 12.6 mmol/L (8-16); CARBON DIOXIDE 30.3 mmol/L (21.0-32.0); CREATININE - SERUM 0.8 mg/dL (0.6-1.3); POTASSIUM - SERUM 3.9 mmol/L (3.5-5.1)
--- NOTE | 2019-09-13 19:17 | NUR ---
PATIENT RESTING IN BED WITH NO S/S OF DISTRESS. SET UP PATIENT'S TRAY CLOSE TO HER, PATIENT DENIES OTHER NEEDS AT THIS TIME. BED IN LOWEST POSITION AND CALL LIGHT WITHIN REACH. ENCOURAGED THE PATIENT TO CALL IF SHE HAS NEEDS. BED ALARM ON. WILL CONTINUE TO MONITOR.
[2019-09-14 04:35] VITALS: BP 127/70
[2019-09-14 07:13] LABS: BASOPHILS 0.3 % (0-2); HEMATOCRIT 37.5 % (36.0-48.0); HEMOGLOBIN 11.2 g/dL (12-16); IMMATURE GRANULOCYTES 0.5 % (0-5); LYMPHOCYTES 20.5 % (15-50); MCH 25.9 pg (26.0-34.0); MCHC 29.9 g/dL (31.0-37.0); MCV 86.6 fL (80.0-100.0); MEAN PLATELET VOLUME 11.4 fL (7.4-10.4); MONOCYTES 14.6 % (2-11); NEUTROPHILS 62.1 % (40-80); RBC 4.33 10x6/uL (4.00-5.40); RDW 19.6 % (11.5-14.5); WBC 6.6 10x3/uL (4.8-10.8)
[2019-09-14 07:21] LABS: PLATELET COUNT 141 10x3/uL (130-400)
[2019-09-14 07:49] LABS: ANION GAP 11.4 mmol/L (8-16); CALCIUM 7.9 mg/dL (8.5-10.1); CREATININE - SERUM 0.9 mg/dL (0.6-1.3); POTASSIUM - SERUM 4.4 mmol/L (3.5-5.1)
[2019-09-14 08:00] VITALS: BP 113/32
--- NOTE | 2019-09-14 08:00 | NUR ---
ALERT AND ORIENTED TO SELF WITH SBA NEED TO BSC. LUNGS CTA AND ENCOURAGED TO USE INCENTIVE SPIROMETER. O2 SAT 94% ON RA. ZOFRAN GIVEN FOR NAUSEA. IV TO LT. F/A. W/O ANY S/S OF INFECTTION/INFILTRATION. ENCOURAGED TO USE CALL LIGHT FOR ASSIST.
[2019-09-14 15:55] VITALS: BP 134/65
--- NOTE | 2019-09-14 19:12 | NUR ---
ASSISTED PATIENT BACK TO BED WITH SOLAR/RENEWABLE ENERGY SALES AFTER PATIENT USED BSC. PATIENT DENIES OTHER NEEDS AT THIS TIME. BED IN LOWEST POSITION AND CALL LIGHT WITHIN REACH. ENCOURAGED THE PATIENT TO CALL IF SHE HAS NEEDS, WILL CONTINUE TO MONITOR.
[2019-09-14 20:32] VITALS: BP 105/51
[2019-09-15 00:23] VITALS: BP 126/64
[2019-09-15 04:00] VITALS: BP 113/67
--- NOTE | 2019-09-15 07:29 | NUR ---
PT C/O NAUSEA, GAVE 4MG OF ZOFRAN AT THIS TIME. KIER HAND CLEANED HELPED PT TO BEDSIDE COMMODE AND BACK TO BED. PT DENIES ANY OTHER NEEDS AT THIS TIME. CALL LIGHT IN REACH, NAD NOTED, WILL PLAN OF CARE.
[2019-09-15 07:50] VITALS: BP 123/70
[2019-09-15] MEDS ORDERED: IPRAT-ALBUT 0.5-3 ML UPD (08:01)
--- NOTE | 2019-09-15 09:34 | NUR ---
O2 94% ON ROOM AIR WHEN PT GOT UP TO BEDSIDE COMMODE X1 ASSIST.
--- NOTE | 2019-09-15 10:04 | MORECARE ---
CASE MANAGEMENT DISCHARGE SUMMARY PATIENT: EMMANUEL CARMICHAEL I UNIT: [id number] ADM DATE: 09/09/19 AGE: 84 : 37 SEX: F ROOM/BED: D.1208 AUTHOR: CASTILLO,DOC PHYSICIAN: REFERRING PHYSICIAN: WENDI HARKINS MD DATE OF SERVICE: 09/15/19 Discharge Plan Patient Name: EMMANUEL CARMICHAEL Facility: [facility]:[place] : 1935 Planned Disposition: Assisted Living Anticipated Discharge Date: 09/13/19 Discharge Date: Expected LOS: 4 Initial Reviewer: [id number] Initial Review Date: 09/09/2019 Generated: 09/15/19 11:03 am Comments DCP- Discharge Planning Updated by [id number]: Karin Kern on 09/11/19 12:[address] DC PLAN: Return to [facility]. ANTICIPATED DC NEEDS: denied known dc needs at time of assessment, CM met with patient to complete initial dc planning assessment. CM educated patient on the CM role and verbal consent given by patient to complete assessment. CM verified patient's address, phone number, and emergency contact phone numbers. Patient lives at [facility]. At discharge patient plans to return to [facility] and feels this is a safe discharge. CM discussed availability of home health, rehab services, and medical equipment. Patient denied known discharge needs at this time. Transportation provider at discharge will be [facility]. CM will continue to follow and will assist as needed with dc plans/needs. Karin Kern RN, [facility] DCPIA - Discharge Planning Initial Assessment Updated by [id number]: Karin Kern on 09/11/19 1:49 pm * Is the patient Alert and Oriented? Yes * How many steps to enter\exit or inside your home? none * PCP Dr. Harkins * Pharmacy [facility] or [facility] * Preadmission Environment Assisted Living * Facility Name [facility] * ADLs Partial Dependent * Partial ADLs (Assistance needed) Bathing Medication Management * Equipment Rolling Walker Wheelchair * List name and contact numbers for known caregivers / representatives who currently or will assist patient after discharge: Dunia Mata [facility] - [phone] * Verbal permission to speak to the caregivers and representatives has been obtained from the patient. Yes * Community resources currently utilized None * Additional services required to return to the preadmission environment? No * Can the patient safely return to the preadmission environment? Yes * Has this patient been hospitalized within the prior 30 days at any hospital? No Coverage Notice Reviewer: [email or web address] Ebony Kern Notice Issued Date-Time: 09/11/2019 10:55 Notice Type: IM Discharge Notice Notice Delivered To: Patient Relationship to Patient: Certified Social Workers In [facility] Care Name: Delivery Method: HAND - Hand Delivered Laverne Days: Prior Verbal Notification: Recipient Understood Notice: Yes Recipient Signature: Yes Med Rec Note Co-signed by Attending: Coverage Notice Comment: DC IMM delivered, explained, signed by the patient, and placed in his chart. Signed form also left with patient. Karin Kern RN , [facility] Last DP export: 09/11/19 12:57 pm Patient Name: EMMANUEL CARMICHAEL Page [phone] at 1004 All edits/amendments must be made on the electronic document DICTATION DATE: 09/15/19 1003 ASSISTANT ADMINISTRATOR: DAISY 09/15/19 1003 RPT#: [id number] DC DATE: STATUS: ADM IN [facility] [address] [place] [address] END OF REPORT
--- NOTE | 2019-09-15 10:11 | MORECARE ---
CASE MANAGEMENT DISCHARGE SUMMARY PATIENT: EMMANUEL CARMICHAEL I UNIT: [id number] ADM DATE: 09/09/19 AGE: 84 : 37 SEX: F ROOM/BED: D.1208 AUTHOR: CASTILLO,DOC PHYSICIAN: REFERRING PHYSICIAN: WENDI HARKINS MD DATE OF SERVICE: 09/15/19 Discharge Plan Patient Name: EMMANUEL CARMICHAEL Facility: [facility]:[place] : 1935 Planned Disposition: Assisted Living Anticipated Discharge Date: 09/13/19 Discharge Date: Expected LOS: 4 Initial Reviewer: [email or web address] Initial Review Date: 09/09/2019 Generated: 09/15/19 11:11 am Comments DCP- Discharge Planning Updated by [id number]: Sugey Ames on 09/15/19 9:[address] 0845 PLAN DISCHARGE BACK TO [facility]. CM SPOKE W/ ADELITA, THE NURSE, TO ADVISE OF DISCHARGE. CM STATED SHE WILL HAVE A NEBULIZER ORDERED. THE PATIENT IS N OXYGEN 1-2 LITERS AT THIS TIME. CM HAD REQUESTED RM AIR SAT WITH REST AND ACTIVITY. THE PRIMARY NURSE, RONALD WILL CALL REPORT AND DISCUSS PICKUP TIME. CM SPOKE W/ THE PATIENT. EXPLAINED AND DISCUSSED THE IMM. PATIENT STATED SHE UNDERSTOOD. TWO COPIES SIGNED BY THE PATIENT. AN ORIGINAL TO THE PATIENT AND AN ORIGINAL TO HER HARD COVER CHART. CM ADVISED THE PATIENT SHE HAS A NEBULIZER ORDERED. SHE WAS PRESENTED WITH THE [facility] PATIENT CHOICE LIST. SHE HAS NO PREFERENCE. [facility] SELECTED FROM THE LIST. PATIENT CHOICE FORM SIGNED. DCP- Discharge Planning Updated by [id number]: Karin Kern on 09/11/19 12:[address] DC PLAN: Return to [facility]. ANTICIPATED DC NEEDS: denied known dc needs at time of assessment, CM met with patient to complete initial dc planning assessment. CM educated patient on the CM role and verbal consent given by patient to complete assessment. CM verified patient's address, phone number, and emergency contact phone numbers. Patient lives at [facility]. At discharge patient plans to return to [facility] and feels this is a safe discharge. CM discussed availability of home health, rehab services, and medical equipment. Patient denied known discharge needs at this time. Transportation provider at discharge will [facility]. CM will continue to follow and will assist as needed with dc plans/needs. Karin Kern RN, [facility] DCPIA - Discharge Planning Initial Assessment Updated by [email or web address]: Karin Kern on 09/11/19 1:49 pm * Is the patient Alert and Oriented? Yes * How many steps to enter\exit or inside your home? none * PCP Dr. Harkins * Pharmacy [facility] or [facility] * Preadmission Environment Assisted Living * Facility Name [facility] * ADLs Partial Dependent * Partial ADLs (Assistance needed) Bathing Medication Management * Equipment Rolling Walker Wheelchair * List name and contact numbers for known caregivers / representatives who currently or will assist patient after discharge: Dunia Mata [facility] - [phone] * Verbal permission to speak to the caregivers and representatives has been obtained from the patient. Yes * Community resources currently utilized None * Additional services required to return to the preadmission environment? No * Can the patient safely return to the preadmission environment? Yes * Has this patient been hospitalized within the prior 30 days at any hospital? No Coverage Notice Reviewer: [id number] - Karin Kern Notice Issued Date-Time: 09/11/2019 10:55 Notice Type: IM Discharge Notice Notice Delivered To: Patient Relationship to Patient: Eyelet Operator Name: Delivery Method: HAND - Hand Delivered Laverne Days: Prior Verbal Notification: Recipient Understood Notice: Yes Recipient Signature: Yes Med Rec Note Co-signed by Attending: Coverage Notice Comment: DC IMM delivered, explained, signed by the patient, and placed in his chart. Signed form also left with patient. Karin Kern RN , [facility] Last DP export: 09/15/19 9:04 a Patient Name: EMMANUEL CARMICHAEL Page [phone] at 1011 All edits/amendments must be made on the electronic document DICTATION DATE: 09/15/19 1011 DISEASE CASE MANAGER RN: DAISY 09/15/19 1011 RPT#: [id number] DC DATE: STATUS: ADM IN [facility] [address] [place] [address] END OF REPORT
--- NOTE | 2019-09-15 10:35 | NUR ---
REPORT CALLED TO MILEY AT [facility]. SARA WILL BE HERE TO PICK PT UP AROUND 1330 TO 1400.
--- NOTE | 2019-09-15 11:27 | MORECARE ---
CASE MANAGEMENT DISCHARGE SUMMARY PATIENT: EMMANUEL CARMICHAEL I UNIT: [id number] ADM DATE: 09/09/19 AGE: 84 : 37 SEX: F ROOM/BED: D.1208 AUTHOR: CASTILLO,DOC PHYSICIAN: REFERRING PHYSICIAN: WENDI HARKINS MD DATE OF SERVICE: 09/15/19 Discharge Plan Patient Name: EMMANUEL CARMICHAEL Facility: [facility]:[place] : 1935 Planned Disposition: Assisted Living Anticipated Discharge Date: 09/13/19 Discharge Date: Expected LOS: 4 Initial Reviewer: [id number] Initial Review Date: 09/09/2019 Generated: 09/15/19 12:27 pm Comments DCP- Discharge Planning Updated by [id number]: Sugey Ames on 09/15/19 10:[address] PATIENT'S ROOM AIR SAT WAS 94 AT REST AND WITH ACTIVITY PER NURSING STAFF. DCP- Discharge Planning Updated by [id number]: Sugey Ames on 09/15/19 10:[address] PLAN FOR DISCHARGE TO [facility] TODAY. CM SPOKE W/ JAILENE, THE NURSE FOR ASSISTED CARE. RONALD, THE PRIMARY NURSE, GAVE REPORT TO THE NURSE. [facility] WILL PROVIDE TRANSPORTATION AT 1330 TODAY. THE NURSE WILL ADVISE THE FAMILY OF PATIENT'S DISCHARGE. NEBULIZER WAS ORDERED FOR DISCHARGE. CM DISCUSSED ORDER AND PROVIDERS WITH THE PATIENT. PATIENT'S CHOICE LIST PROVIDED. SHE HAS NO PREFERENCE. [facility] SELECTED. TC TO [facility]. FAXED PATIENT ORDER, H/P AND DISCHARGE SUMMARY. PLAN FOR DELIVERY TO THE PATIENT'S HOME. PATIENT HAD BEEN ON MDI PRIOR TO ADMISSION. PATIENT ADVISED OF DISCHARGE TIME. SHE IS IN AGREEMENT WITH THE PLAN. DCP- Discharge Planning Updated by [id number]: Sugey Ames on 09/15/19 9:[address] 0845 [facility] SPEEDY SPOKE W/ ADELITA, THE NURSE, TO ADVISE OF DISCHARGE. CM STATED SHE WILL HAVE A NEBULIZER ORDERED. THE PATIENT IS N OXYGEN 1-2 LITERS AT THIS TIME. CM HAD REQUESTED RM AIR SAT WITH REST AND ACTIVITY. THE PRIMARY NURSE, RONALD WILL CALL REPORT AND DISCUSS PICKUP TIME. CM SPOKE W/ THE PATIENT. EXPLAINED AND DISCUSSED THE IMM. PATIENT STATED SHE UNDERSTOOD. TWO COPIES SIGNED BY THE PATIENT. AN ORIGINAL TO THE PATIENT AND AN ORIGINAL TO HER HARD COVER CHART. CM ADVISED THE PATIENT SHE HAS A NEBULIZER ORDERED. SHE WAS PRESENTED WITH THE [facility] PATIENT CHOICE LIST. SHE HAS NO PREFERENCE. [facility] SELECTED FROM THE LIST. PATIENT CHOICE FORM SIGNED. DCP- Discharge Planning Updated by [id number]: Karin Kern on 09/11/19 12:[address] DC PLAN: Return to [facility]. ANTICIPATED DC NEEDS: denied known dc needs at time of assessment, CM met with patient to complete initial dc planning assessment. CM educated patient on the CM role and verbal consent given by patient to complete assessment. CM verified patient's address, phone number, and emergency contact phone numbers. Patient lives at [facility]. At discharge patient plans to return to [facility] and feels this is a safe discharge. CM discussed availability of home health, rehab services, and medical equipment. Patient denied known discharge needs at this time. Transportation provider at discharge will be [facility]. CM will continue to follow and will assist as needed with dc plans/needs. Karin Kern RN, [facility] DCPIA - Discharge Planning Initial Assessment Updated by [id number]: Karin Kern on 09/11/19 1:49 pm * Is the patient Alert and Oriented? Yes * How many steps to enter\exit or inside your home? none * PCP Dr. Harkins * Pharmacy [facility] or [facility] * Preadmission Environment Assisted Living * Facility Name [facility] * ADLs Partial Dependent * Partial ADLs (Assistance needed) Bathing Medication Management * Equipment Rolling Walker Wheelchair * List name and contact numbers for known caregivers / representatives who currently or will assist patient after discharge: Dunia Hernandezhop [facility] - [phone] * Verbal permission to speak to the caregivers and representatives has been obtained from the patient. Yes * Community resources currently utilized None * Additional services required to return to the preadmission environment? No * Can the patient safely return to the preadmission environment? Yes * Has this patient been hospitalized within the prior 30 days at any hospital? No Coverage Notice Reviewer: [id number] - Karin Kern Notice Issued Date-Time: 09/11/2019 10:55 Notice Type: IM Discharge Notice Notice Delivered To: Patient Relationship to Patient: Pattern Storage Clerk Name: Delivery Method: HAND - Hand Delivered Laverne Days: Prior Verbal Notification: Recipient Understood Notice: Yes Recipient Signature: Yes Med Rec Note Co-signed by Attending: Coverage Notice Comment: DC IMM delivered, explained, signed by the patient, and placed in his chart. Signed form also left with patient. Karin Kern RN , [facility] Reviewer: [id number] - Sugey Ames Notice Issued Date-Time: 09/15/2019 10:37 Notice Type: IM Discharge Notice Notice Delivered To: Patient Relationship to Patient: Self Pattern Storage Clerk Name: Delivery Method: HAND - Hand Delivered Laverne Days: Prior Verbal Notification: Recipient Understood Notice: Yes Recipient Signature: Yes Med Rec Note Co-signed by Attending: Coverage Notice Comment: CM EXPLAINED DISCHARGE IMM TO THE PATIENT. SHE HAD NO QUESTIONS OR CONCERNS. STATED SHE UNDERSTOOD. SIGNATURES OBTAINED. ORIGINAL COPY TO THE PATIENT AND ORIGINAL COPY TO THE HARD COVER CHART. Reviewer: [id number] - Sugey Ames Notice Issued Date-Time: 09/15/2019 9:53 Notice Type: Patient Choice Letter Notice Delivered To: Patient Relationship to Patient: Self Pattern Storage Clerk Name: Delivery Method: HAND - Hand Delivered Laverne Days: Prior Verbal Notification: Recipient Understood Notice: Yes Recipient Signature: Yes Med Rec Note Co-signed by Attending: Coverage Notice Comment: CM DISCUSSED DME ORDERS. GAVE THE PATIENT A DME PROVIDER LIST. SHE HAD NO PREFERENCE. SIGNATURES OBTAINED. Last DP export: 09/15/19 9:11 a Patient Name: EMMANUEL CARMICHAEL Page [id number] at 1127 All edits/amendments must be made on the electronic document DICTATION DATE: 09/15/19 112 CUSTOMER LEADER: DAISY 09/15/19 1127 RPT#: [id number] DC DATE: STATUS: ADM IN [facility] [address] [place] [address] END OF REPORT
[2019-09-15 11:29] VITALS: BP 143/74
--- NOTE | 2019-09-15 13:39 | NUR ---
D/C LT FA IV WITH CATHETER TIP INTACT. IMPORT CUSTOMS CLEARING AGENT TO GET PT READY.
--- NOTE | 2019-09-15 14:06 | NUR ---
LEAD NEURODIAGNOSTIC TECHNOLOGIST HERE TO PICK PT UP. PT LEFT UNIT VIA WHEELCHAIR, WITH ALL BELONGINGS, NAD NOTED.
--- NOTE | 2019-09-15 18:12 | MORECARE ---
CASE MANAGEMENT DISCHARGE SUMMARY PATIENT: EMMANUEL CARMICHAEL I UNIT: [id number] ADM DATE: 09/09/19 AGE: 84 : 37 SEX: F ROOM/BED: D.1208 AUTHOR: CASTILLO,DOC PHYSICIAN: REFERRING PHYSICIAN: WENDI HARKINS MD DATE OF SERVICE: 09/15/19 Discharge Plan Patient Name: EMMANUEL CARMICHAEL Facility: [facility]:[place] : 1935 Planned Disposition: Assisted Living Anticipated Discharge Date: 09/13/19 Discharge Date: 09/15/2019 Expected LOS: 4 Initial Reviewer: [id number] Initial Review Date: 09/09/2019 Generated: 09/15/19 7:11 pm Comments DCP- Discharge Planning Updated by [id number]: Sugye Ames on 09/15/19 10:[address] PATIENT'S ROOM AIR SAT WAS 94 AT REST AND WITH ACTIVITY PER NURSING STAFF. DCP- Discharge Planning Updated by [id number]: Sugey Ames on 09/15/19 10:[address] PLAN FOR DISCHARGE TO [facility] TODAY. CM SPOKE Marcel DENT, THE NURSE FOR ASSISTED CARE. RONALD, THE PRIMARY NURSE, GAVE REPORT TO THE NURSE. [facility] WILL PROVIDE TRANSPORTATION AT 1330 TODAY. THE NURSE WILL ADVISE THE FAMILY OF PATIENT'S DISCHARGE. NEBULIZER WAS ORDERED FOR DISCHARGE. CM DISCUSSED ORDER AND PROVIDERS WITH THE PATIENT. PATIENT'S CHOICE LIST PROVIDED. SHE HAS NO PREFERENCE. [facility] SELECTED. TC TO [facility]. FAXED PATIENT ORDER, H/P AND DISCHARGE SUMMARY. PLAN FOR DELIVERY TO THE PATIENT'S HOME. PATIENT HAD BEEN ON MDI PRIOR TO ADMISSION. PATIENT ADVISED OF DISCHARGE TIME. SHE IS IN AGREEMENT WITH THE PLAN. DCP- Discharge Planning Updated by [email or web address]: Sugey Ames on 09/15/19 9:[address] 0845 PLAN DISCHARGE BACK TO [facility]. CM SPOKE Marcel UREÑA, THE NURSE, TO ADVISE OF DISCHARGE. CM STATED SHE WILL HAVE A NEBULIZER ORDERED. THE PATIENT IS N OXYGEN 1-2 LITERS AT THIS TIME. CM HAD REQUESTED RM AIR SAT WITH REST AND ACTIVITY. THE PRIMARY NURSE, RONALD WILL CALL REPORT AND DISCUSS PICKUP TIME. CM SPOKE W/ THE PATIENT. EXPLAINED AND DISCUSSED THE IMM. PATIENT STATED SHE UNDERSTOOD. TWO COPIES SIGNED BY THE PATIENT. AN ORIGINAL TO THE PATIENT AND AN ORIGINAL TO HER HARD COVER CHART. CM ADVISED THE PATIENT SHE HAS A NEBULIZER ORDERED. SHE WAS PRESENTED WITH THE [facility] PATIENT CHOICE LIST. SHE HAS NO PREFERENCE. [facility] SELECTED FROM THE LIST. PATIENT CHOICE FORM SIGNED. DCP- Discharge Planning Updated by [id number]: Karin Kern on 09/11/19 12:[address] DC PLAN: Return to [facility]. ANTICIPATED DC NEEDS: denied known dc needs at time of assessment, CM met with patient to complete initial dc planning assessment. CM educated patient on the CM role and verbal consent given by patient to complete assessment. CM verified patient's address, phone number, and emergency contact phone numbers. Patient lives at [facility]. At discharge patient plans to return to [facility] and feels this is a safe discharge. CM discussed availability of home health, rehab services, and medical equipment. Patient denied known discharge needs at this time. Transportation provider at discharge will be [facility]. CM will continue to follow and will assist as needed with dc plans/needs. Karin Kern RN, [facility] DCPIA - Discharge Planning Initial Assessment Updated by [id number]: Karin Kern on 09/11/19 1:49 pm * Is the patient Alert and Oriented? Yes * How many steps to enter\exit or inside your home? none * PCP Dr. Harkins * Pharmacy [facility] or [facility] * Preadmission Environment Assisted Living * Facility Name [facility] * ADLs Partial Dependent * Partial ADLs (Assistance needed) Bathing Medication Management * Equipment Rolling Walker Wheelchair * List name and contact numbers for known caregivers / representatives who currently or will assist patient after discharge: Dunia Hernandezbaylee [facility] - [phone] * Verbal permission to speak to the caregivers and representatives has been obtained from the patient. Yes * Community resources currently utilized None * Additional services required to return to the preadmission environment? No * Can the patient safely return to the preadmission environment? Yes * Has this patient been hospitalized within the prior 30 days at any hospital? No Coverage Notice Reviewer: [id number] Ebony Kern Notice Issued Date-Time: 09/11/2019 10:55 Notice Type: IM Discharge Notice Notice Delivered To: Patient Relationship to Patient: Front Desk Clerk Name: Delivery Method: HAND - Hand Delivered Laverne Days: Prior Verbal Notification: Recipient Understood Notice: Yes Recipient Signature: Yes Med Rec Note Co-signed by Attending: Coverage Notice Comment: DC IMM delivered, explained, signed by the patient, and placed in his chart. Signed form also left with patient. Karin Kern RN , [facility] Reviewer: [id number] Ebony Ames Notice Issued Date-Time: 09/15/2019 10:37 Notice Type: IM Discharge Notice Notice Delivered To: Patient Relationship to Patient: Self Front Desk Clerk Name: Delivery Method: HAND - Hand Delivered Laverne Days: Prior Verbal Notification: Recipient Understood Notice: Yes Recipient Signature: Yes Med Rec Note Co-signed by Attending: Coverage Notice Comment: CM EXPLAINED DISCHARGE IMM TO THE PATIENT. SHE HAD NO QUESTIONS OR CONCERNS. STATED SHE UNDERSTOOD. SIGNATURES OBTAINED. ORIGINAL COPY TO THE PATIENT AND ORIGINAL COPY TO THE HARD COVER CHART. Reviewer: [id number] Ebony Ames Notice Issued Date-Time: 09/15/2019 9:53 Notice Type: Patient Choice Letter Notice Delivered To: Patient Relationship to Patient: Self Front Desk Clerk Name: Delivery Method: HAND - Hand Delivered Laverne Days: Prior Verbal Notification: Recipient Understood Notice: Yes Recipient Signature: Yes Med Rec Note Co-signed by Attending: Coverage Notice Comment: CM DISCUSSED DME ORDERS. GAVE THE PATIENT A DME PROVIDER LIST. SHE HAD NO PREFERENCE. SIGNATURES OBTAINED. Last DP export: 09/15/19 10:27 a Patient Name: EMMANUEL CARMICHAEL Page [phone] at 1812 All edits/amendments must be made on the electronic document DICTATION DATE: 09/15/191810 RESIDENCY DIRECTOR: DAISY 09/15/191810 RPT#: [id number] DC DATE:09/15/19 STATUS: DIS IN [facility] [address] [place] [address] END OF REPORT
== END 2019-09-15 14:09 | disposition home or self-care (01) | DRG 808 ==
LOC: D.M3 10:44
PROVIDERS: ADMIT Family Medicine; ATTEND Family Medicine
DX: D61.818 Other pancytopenia (principal); I50.33 Acute on chronic diastolic (congestive) heart failure; I48.91 Unspecified atrial fibrillation; K21.9 Gastro-esophageal reflux disease without esophagitis; Z87.891 Personal history of nicotine dependence